=== PATIENT | female | born 1955 | race Caucasian/White ===

== ENCOUNTER 2020-12-29 08:12 | Outpatient (REF) | payer MEDICARE, SELFPAY ==
[2020-12-29 09:12] LABS: MANUAL DIFF FLAG NO
[2020-12-29 09:15] LABS: Basophils Percent Auto 0.6 % (0-2); Eosinophils Absolute Auto 0.1 X10*3/uL (0.0-0.4); Hematocrit 42.8 % (37-47); Lymphocytes Absolute Auto 1.6 X10*3/uL (1.2-4.9); Lymphocytes Percent Auto 33.8 % (20-40); Mean Corpuscular HGB Conc 32.7 g/dl (31.0-35.0); Mean Corpuscular Hemoglobin 29.7 pg (27.0-33.0); Mean Corpuscular Volume 90.9 fL (80-98); Mean Platelet Volume 9.9 fL (9.4-12.3); Monocytes Absolute Auto 0.5 X10*3/uL (0.1-1.2); Monocytes Percent Auto 10.1 % (2-11); Neutrophils Absolute Auto 2.5 X10*3/uL (2.0-8.3); Neutrophils Percent Auto 52.5 % (45-73); Platelet Count 221 X10*3/uL (160-400); Red Blood Count 4.71 X10*6/uL (4.20-5.50); Red Cell Distribution Width 12.4 % (11.0-16.0); White Blood Count 4.7 X10*3/uL (4.8-10.8)
[2020-12-29 09:34] LABS: Alanine Aminotransferase 19 U/L (0-31); Albumin Level 4.2 g/dL (3.5-5.0); Alkaline Phosphatase 86 U/L (39-117); Aspartate Amino Transferase 20 U/L (5-31); Bilirubin Total 0.5 mg/dL (0.0-1.0); Blood Urea Nitrogen 15 mg/dL (9-16); Calcium 9.6 mg/dL (8.4-10.2); Cholesterol 220 mg/dL; Estimated Average Glucose 131 mg/dL; Estimated Glomerular Filt Rate 57; Glucose Random 108 mg/dL (60-115); HDL Cholesterol 83 mg/dL; Hemoglobin A1c % 6.2 %; LDL Cholesterol Calculated 124 mg/dl; Total Protein 7.1 g/dL (6.5-8.0); Triglycerides 66 mg/dL
[2020-12-29 09:35] LABS: Creatinine Urine 236.45 mg/dL; Microalbum/Creatinine Ratio Ur 6.7 ug/mg cr
[2020-12-29 09:43] LABS: Anion Gap 11 (12-20); Carbon Dioxide 30 mmol/L (22-29); Chloride 103 mmol/L (96-108); Potassium 4.8 mmol/L (3.3-5.1); Sodium 139 mmol/L (135-145)
[2020-12-29 09:55] LABS: Free T4 (Free Thyroxine) 1.05 ng/dL (0.71-1.85); Thyroid Stimulating Hormone 0.89 uIU/mL (0.32-4.0); Vitamin D 25-OH Total 18.3 ng/mL (>30)
[2020-12-29 10:13] LABS: Folate 13.4 ng/mL (> or = 4.0); Vitamin B12 258 pg/mL (200-900)
== END 2020-12-29 08:13 | disposition home or self-care (01) ==
LOC: HO.LAB 08:12
PROVIDERS: PCP Internal Medicine; Visit Provider Internal Medicine
DX: E11.65 Type 2 diabetes mellitus with hyperglycemia (principal); E78.00 Pure hypercholesterolemia, unspecified; E03.9 Hypothyroidism, unspecified
CPT/HCPCS: 36415; 80053; 80061; 82043; 82306; 82607; 82746; 83036; 84439; 84443; 85025

== ENCOUNTER 2021-02-07 12:05 | Outpatient (REF) | payer MEDICARE, SELFPAY ==
--- NOTE | ~2021-02-07 | MM_ITS ---
EXAMINATION: MM SCREENING DIGITAL BREAST TOMOSYNTHESIS, BILATERAL CLINICAL INFORMATION: Screening. Asymptomatic. The lifetime risk of breast cancer based on the Tyrer-Cuzick Model is 4%. COMPARISON: Mammography: 02/25/2018, 11/07/2015, 05/10/2014 TECHNIQUE: Digital breast tomosynthesis is performed in both the craniocaudal and mediolateral oblique views along with computer-aided detection (CAD). Synthesized 2D images are generated from the tomosynthesis. FINDINGS: There are scattered areas of fibroglandular density (ACR BI-RADS breast composition Category b). There are no significant masses, abnormal calcifications, or other abnormalities. Parenchymal pattern is similar to prior studies. No developing density. There are scattered vascular and some ductal secretory calcifications. The axilla and skin contours are unremarkable. MM/MM tomosynthesis screening BI IMPRESSION: No mammographic evidence of malignancy. ASSESSMENT: BI-RADS 2: Benign RECOMMENDATION: Routine annual mammography screening. This patient's information was entered into a reminder system with a target due date for their next mammogram.
== END 2021-02-07 12:06 | disposition home or self-care (01) ==
LOC: HO.MAMMO 12:05
PROVIDERS: Visit Provider Internal Medicine
DX: Z12.31 Encounter for screening mammogram for malignant neoplasm of breast (principal)
CPT/HCPCS: 77063; 77067

== ENCOUNTER 2021-02-21 09:51 | Outpatient (REF) | payer MEDICARE, SELFPAY ==
--- NOTE | ~2021-02-21 | XR_ITS ---
EXAMINATION: XR SHOULDER, RIGHT CLINICAL INFORMATION: Pain. COMPARISON: None TECHNIQUE: AP external rotation, Grashey, scapular Y, and axillary views of the right shoulder. FINDINGS: Bony alignment is normal. There is bony demineralization. The glenohumeral joint is intact. There is mild peripheral osteophyte formation of the glenoid process. The acromioclavicular and coracoclavicular intervals are normal. There is very mild osteoarthritic change of the acromioclavicular joint. No fracture or dislocation is seen. There are no unusual soft tissue calcifications. No foreign body is seen. There is no right pneumothorax.. XR/XR shoulder RT min 2V IMPRESSION: 1. There is mild osteoarthritic change of the right glenohumeral joint, and very mild osteoarthritic change is seen of the right acromioclavicular joint. 2. No fracture or dislocation is seen.
--- NOTE | ~2021-02-21 | MM_ITS ---
EXAMINATION: BONE DENSITOMETRY CLINICAL INDICATION: Other specified disorders of bone density and structure. COMPARISON: Previous BD dated 02/25/2018 and baseline BD dated 08/17/2009. TECHNIQUE: Using a [employer] DXA System (software version: 13.1) manufactured by [email or web address], dual-energy x-ray absorptiometry was performed of the lumbar spine and left hip. The images are of good technical quality. Summary results are attached. FINDINGS: AP SPINE L1-L2 (excluding L3 and L4): The data of L1-L4 has been changed to exclude the L3 and L4 vertebral bodies, because degenerative changes at these levels may cause overestimation of lumbar spine density. Current: BMD 0.862 g/cm2, Z-score -1.6, T-score -2.5, osteoporosis, 0.3% increase from previous, 13.5% decrease from baseline (<5% change is not significant). Prior: BMD 0.859 g/cm2. Baseline: BMD 0.997 g/cm2. LEFT FEMUR, NECK: Current: BMD 0.755 g/cm2, Z-score -0.9, T-score -2.0, osteopenia. Prior: BMD 0.759 g/cm2. Baseline: BMD 0.865 g/cm2. LEFT FEMUR, TOTAL: Current: BMD 0.851 g/cm2, Z-score -0.4, T-score -1.2, osteopenia, 1.5% decrease from previous, 9.4% decrease from baseline (<5% change is not significant). Prior: BMD 0.864 g/cm2. Baseline: BMD 0.939 g/cm2. IDENTIFIED RISK FACTORS: Menopause. HISTORY OF FRACTURE: None listed. MEDICATIONS: None listed. MM/XR DEXA axial skeleton IMPRESSION: 1. DIAGNOSIS: Osteoporosis based on the lowest T-score value of -2.5 in the lumbar spine applying World Health Organization criteria. 2. 10-YEAR FRACTURE RISK PREDICTION, FRAX: Major osteoporotic fracture (clinical spine, forearm, hip or shoulder) 11.2%. Hip fracture 1.9%. 3. Treatment Recommendations: NOF guidelines recommend consideration for treatment in postmenopausal women and men age 50 and older presenting with the following: -A hip or vertebral (clinical or morphometric) fracture. -T-score less than or equal to -2.5 at the femoral neck or spine after appropriate evaluation to exclude secondary causes. -Low bone mass at the hip or spine and a 10-year fracture probability by FRAX of greater than or equal to 3% for hip fracture or greater than or equal to 20% for major osteoporotic fracture based on the [place] adapted WHO algorithm. 4. Other Recommendations: All treatment decisions require clinical judgment and consideration of individual patient factors, including patient preferences, comorbidities, previous drug use, risk factors not captured in the FRAX model (e.g. frailty, falls, vitamin D deficiency, increased bone turnover, interval significant decline in bone density) and possible under or overestimation of fracture risk by FRAX. Additional medical evaluation for secondary cause of low bone mineral density may be appropriate. FUTURE SCAN RECOMMENDATION: People with diagnosed cases of osteoporosis or at high risk for fracture should have regular bone mineral density tests. For patients eligible for Medicare, routine testing is allowed once every 2 years. The testing frequency can be increased to one year for patients who have rapidly progressing disease, those who are receiving or discontinuing medical therapy to restore bone mass, or have additional risk factors.
== END 2021-02-21 09:52 | disposition home or self-care (01) ==
LOC: HO.MAMMO 09:51
PROVIDERS: PCP Internal Medicine; Visit Provider Internal Medicine
DX: Z13.820 Encounter for screening for osteoporosis (principal); M81.0 Age-related osteoporosis without current pathological fracture; M85.80 Other specified disorders of bone density and structure, unspecified site; Z78.0 Asymptomatic menopausal state; M25.511 Pain in right shoulder
CPT/HCPCS: 73030; 77080

== ENCOUNTER 2021-03-30 07:11 | Outpatient (REF) | payer MEDICARE, SELFPAY ==
[2021-03-30 07:37] LABS: MANUAL DIFF FLAG NO
[2021-03-30 07:40] LABS: Basophils Percent Auto 0.7 % (0-2); Eosinophils Absolute Auto 0.1 X10*3/uL (0.0-0.4); Eosinophils Percent Auto 3.2 % (0-4); Hematocrit 41.7 % (37-47); Hemoglobin 13.9 g/dl (12.0-16.0); Imm Gran Abs Auto 0.01 X10*3/uL (0.00-0.03); Imm Gran Pct Auto 0.2 % (0.0-0.4); Lymphocytes Absolute Auto 1.7 X10*3/uL (1.2-4.9); Mean Corpuscular HGB Conc 33.3 g/dl (31.0-35.0); Mean Corpuscular Hemoglobin 29.8 pg (27.0-33.0); Mean Corpuscular Volume 89.3 fL (80-98); Mean Platelet Volume 9.6 fL (9.4-12.3); Monocytes Absolute Auto 0.5 X10*3/uL (0.1-1.2); Monocytes Percent Auto 11.8 % (2-11); Neutrophils Absolute Auto 1.9 X10*3/uL (2.0-8.3); Neutrophils Percent Auto 44.1 % (45-73); Platelet Count 206 X10*3/uL (160-400); Red Blood Count 4.67 X10*6/uL (4.20-5.50); Red Cell Distribution Width 12.5 % (11.0-16.0); White Blood Count 4.3 X10*3/uL (4.8-10.8)
[2021-03-30 08:09] LABS: Alanine Aminotransferase 20 U/L (0-31); Albumin Level 4.1 g/dL (3.5-5.0); Alkaline Phosphatase 91 U/L (39-117); Anion Gap 12 (12-20); Aspartate Amino Transferase 21 U/L (5-31); Bilirubin Total 0.6 mg/dL (0.0-1.0); Blood Urea Nitrogen 13 mg/dL (9-16); Calcium 9.7 mg/dL (8.4-10.2); Carbon Dioxide 30 mmol/L (22-29); Chloride 104 mmol/L (96-108); Cholesterol 186 mg/dL; Estimated Glomerular Filt Rate 52; Glucose Random 146 mg/dL (60-115); HDL Cholesterol 73 mg/dL; LDL Cholesterol Calculated 98 mg/dl; Potassium 4.8 mmol/L (3.3-5.1); Sodium 141 mmol/L (135-145); Total Protein 6.8 g/dL (6.5-8.0); Triglycerides 76 mg/dL
[2021-03-30 08:49] LABS: Folate 13.5 ng/mL (> or = 4.0); Vitamin B12 1566 pg/mL (200-900)
[2021-03-30 09:18] LABS: Creatinine Urine 127.83 mg/dL
== END 2021-03-30 07:12 | disposition home or self-care (01) ==
LOC: HO.LAB 07:11
PROVIDERS: PCP Internal Medicine; Visit Provider Internal Medicine
DX: E11.65 Type 2 diabetes mellitus with hyperglycemia (principal); E78.00 Pure hypercholesterolemia, unspecified
CPT/HCPCS: 36415; 80053; 80061; 82607; 82746; 85025

== ENCOUNTER 2021-07-06 10:35 | Outpatient (REF) | payer MEDICARE, SELFPAY ==
--- NOTE | ~2021-07-06 | XR_ITS ---
EXAMINATION: XR CHEST CLINICAL INFORMATION: Type 2 diabetes mellitus with hyperglycemia. COMPARISON: 12/23/2017 TECHNIQUE: 2 views of the chest were obtained. FINDINGS: The cardiomediastinal silhouette is stable. There are diffusely increased interstitial lung markings, right greater than left, these are progressive when compared with the prior chest radiograph from 12/23/2017. No dense consolidation. No pleural effusion or pneumothorax. Osseous structures unremarkable. XR/XR chest 2V IMPRESSION: Increased interstitial lung markings, progressive when compared with 12/23/2017. These findings likely represent progressive progressive changes in the patient's underlying interstitial lung disease however an acute atypical infectious process is not excluded.
== END 2021-07-06 10:36 | disposition home or self-care (01) ==
LOC: HO.XRAY 10:35
PROVIDERS: PCP Internal Medicine; Visit Provider Internal Medicine
DX: E11.65 Type 2 diabetes mellitus with hyperglycemia (principal)
CPT/HCPCS: 71046

== ENCOUNTER → 2021-07-27 08:47 | Outpatient (BNVA) | payer MEDICARE, SELFPAY | PROVIDERS: PCP Internal Medicine; Visit Provider Internal Medicine Pulmonary Disease | DX: J84.9 Interstitial pulmonary disease, unspecified (principal); R93.89 Abnormal findings on diagnostic imaging of other specified body structures | CPT/HCPCS: 99202 ==

== ENCOUNTER 2021-08-17 09:33 | Outpatient (REF) | payer MEDICARE, SELFPAY ==
--- NOTE | ~2021-08-17 | CT_ITS ---
EXAMINATION: CT CHEST WITHOUT CONTRAST CLINICAL INFORMATION: Interstitial lung disease. COMPARISON: Previous chest x-rays most recent June 2021. TECHNIQUE: Multidetector volumetric CT imaging of the chest was done. Axial MIP volume rendering provided. Sagittal and coronal reformatted images were obtained. This CT examination was performed using dose optimization techniques as appropriate, variously including the following: *Automated exposure control *Adjustment of mA and/or kV according to patient size (this includes techniques or standardized protocols for targeted exams where dose is matched to indication/reason for exam; i.e. extremities or head) *Use of iterative reconstruction technique DLP: 161 mGy-cm FINDINGS: LUNGS: There are increased peripheral interstitial markings with increased peripheral or subpleural reticulation. This is seen diffusely throughout the lungs but greatest at the lung bases. There appear to be increased linear central lung markings in polygonal distribution as well. There are scattered small peripheral or subpleural calcifications. No suspicious pulmonary nodule is seen. No traction bronchiectasis is seen. There is some peripheral or subpleural cystic changes seen at the lung bases. This does not meet criteria for honeycombing. No evidence of emphysema. No endobronchial or endotracheal lesion. MEDIASTINUM: There are small mediastinal lymph nodes. No enlarged lymph nodes are seen. The heart does not appear enlarged. There is mild coronary artery calcification. There is no pericardial effusion. The thoracic aorta is normal in caliber. The pulmonary arteries are upper normal in size, main pulmonary artery measuring 3 cm. PLEURA: There is no pleural effusion. No pleural mass or thickening. AXILLA: No lymphadenopathy. UPPER ABDOMEN: Unremarkable. OSSEOUS STRUCTURES: Unremarkable. CT/CT chest wo con IMPRESSION: Interstitial lung disease. Chest CT appearance is nonspecific. UIP as well as nonspecific interstitial pneumonitis should be considered. Fleischner guidelines were followed.
== END 2021-08-17 09:34 | disposition home or self-care (01) ==
LOC: HO.CT 09:33
PROVIDERS: Visit Provider Internal Medicine Pulmonary Disease
DX: J84.9 Interstitial pulmonary disease, unspecified (principal)
CPT/HCPCS: 71250

== ENCOUNTER 2021-08-21 10:52 | Outpatient (REF) | payer MEDICARE, SELFPAY ==
--- NOTE | 2021-08-21 17:36 | PFT_ITS ---
INDICATION: ILD. SPIROMETRY: FEV1 to FVC of 90% with an FEV1 of 2.05 L which is 85% predicted, an FVC of 2.28 L which is 71% predicted. No significant response to bronchodilators noted. Maximum voluntary ventilation 86% predicted. LUNG VOLUMES: Total lung capacity 75% predicted with an expiratory reserve volume of 91% predicted. DIFFUSION CAPACITY: DLCO 59% predicted. COMPARISONS: I do not have any. IMPRESSION: There are no evidence of any obstructive ventilatory defect. No significant response to bronchodilators noted. Normal maximum voluntary ventilation. However the patient does have a mild restrictive ventilatory defect consistent with her underlying history of interstitial lung disease. The patient also has a moderate diffusion impairment secondary to the above. Comparisons will be helpful. Clinical correlation warranted. MD JAMA Arguelles/MODClyde / [id number]
== END 2021-08-21 10:53 | disposition home or self-care (01) ==
LOC: HO.RESP 10:52
PROVIDERS: PCP Internal Medicine; Visit Provider Internal Medicine Pulmonary Disease
DX: J84.9 Interstitial pulmonary disease, unspecified (principal)
CPT/HCPCS: 94060; 94727; 94729

== ENCOUNTER → 2021-09-07 09:14 | Outpatient (BNVA) | payer MEDICARE, SELFPAY | PROVIDERS: PCP Internal Medicine; Visit Provider Internal Medicine Pulmonary Disease | DX: J84.9 Interstitial pulmonary disease, unspecified (principal) | CPT/HCPCS: 99212 ==

== ENCOUNTER 2022-01-04 11:20 | Outpatient (REF) | payer MEDICARE, SELFPAY ==
[2022-01-04 11:30] LABS: MANUAL DIFF FLAG NO
[2022-01-04 12:16] LABS: Basophils Percent Auto 1.1 % (0-2); Eosinophils Absolute Auto 0.2 X10*3/uL (0.0-0.4); Eosinophils Percent Auto 5.1 % (0-4); Hematocrit 39.7 % (37.0-47.0); Hemoglobin 12.9 g/dl (12.0-16.0); Imm Gran Abs Auto 0.01 X10*3/uL (0.00-0.03); Imm Gran Pct Auto 0.3 % (0.0-0.4); Lymphocytes Absolute Auto 1.5 X10*3/uL (1.2-4.9); Lymphocytes Percent Auto 39.8 % (20-40); Mean Corpuscular HGB Conc 32.5 g/dl (31.0-35.0); Mean Corpuscular Hemoglobin 29.4 pg (27.0-33.0); Mean Corpuscular Volume 90.4 fL (80.0-98.0); Mean Platelet Volume 9.8 fL (9.4-12.3); Monocytes Absolute Auto 0.5 X10*3/uL (0.1-1.2); Monocytes Percent Auto 12.3 % (2-11); Neutrophils Absolute Auto 1.6 x10*3/uL (2.0-8.3); Neutrophils Percent Auto 41.4 % (45-73); Platelet Count 215 X10*3/uL (160-400); Red Blood Count 4.39 X10*6/uL (4.20-5.50); Red Cell Distribution Width 12.7 % (11.0-16.0); White Blood Count 3.7 X10*3/uL (4.8-10.8)
[2022-01-04 12:30] LABS: Estimated Average Glucose 134 mg/dL; Hemoglobin A1c % 6.3 %
[2022-01-04 12:43] LABS: Alanine Aminotransferase 17 U/L (0-31); Albumin Level 3.9 g/dL (3.5-5.0); Alkaline Phosphatase 111 U/L (39-117); Anion Gap 10 (12-20); Aspartate Amino Transferase 19 U/L (5-31); Bilirubin Total 0.5 mg/dL (0.0-1.0); Blood Urea Nitrogen 16 mg/dL (9-16); Calcium 9.3 mg/dL (8.4-10.2); Carbon Dioxide 27 mmol/L (22-29); Chloride 104 mmol/L (96-108); Cholesterol 191 mg/dL; Estimated Glomerular Filt Rate > 60; Glucose Random 136 mg/dL (60-115); HDL Cholesterol 69 mg/dL; LDL Cholesterol Calculated 108 mg/dl; Potassium 4.2 mmol/L (3.3-5.1); Sodium 137 mmol/L (135-145); Total Protein 7.4 g/dL (6.5-8.0); Triglycerides 70 mg/dL
[2022-01-04 13:06] LABS: Free T4 (Free Thyroxine) 1.21 ng/dL (0.71-1.85); Thyroid Stimulating Hormone 0.89 uIU/mL (0.32-4.0)
[2022-01-04 13:27] LABS: Folate 14.3 ng/mL (> or = 4.0); Vitamin B12 475 pg/mL (200-900)
[2022-01-04 13:58] LABS: Creatinine Urine 164.04 mg/dL; Microalbum/Creatinine Ratio Ur 7.9 ug/mg cr
== END 2022-01-04 11:21 | disposition home or self-care (01) ==
LOC: HO.LAB 11:20
PROVIDERS: PCP Internal Medicine; Visit Provider Internal Medicine
DX: E03.9 Hypothyroidism, unspecified (principal); E11.65 Type 2 diabetes mellitus with hyperglycemia; E78.00 Pure hypercholesterolemia, unspecified
CPT/HCPCS: 36415; 80053; 80061; 82043; 82607; 82746; 83036; 84439; 84443; 85025

== ENCOUNTER 2022-07-20 12:46 | Outpatient (REF) | payer MEDICARE, SELFPAY ==
--- NOTE | ~2022-07-20 | CT_ITS ---
EXAMINATION: CT CHEST WITHOUT CONTRAST CLINICAL INFORMATION: Interstitial pulmonary disease. COMPARISON: CT chest 08/17/2021 TECHNIQUE: Multidetector volumetric CT imaging of the chest was done. Axial MIP volume rendering provided. Sagittal and coronal reformatted images were obtained. This CT examination was performed using dose optimization techniques as appropriate, variously including the following: *Automated exposure control *Adjustment of mA and/or kV according to patient size (this includes techniques or standardized protocols for targeted exams where dose is matched to indication/reason for exam; i.e. 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 LUNGS: The lungs are well-expanded with increased intralobular and interlobular prominent interstitial thickening in both upper and lower lobes. Also visualized is subpleural fine interstitial stranding throughout both lungs. There are few scattered calcified and noncalcified densities measuring less than 3 mm. There is no bronchiectasis or bronchial wall thickening. There is no consolidation. MEDIASTINUM: The thyroid lobes are symmetric and normal. The central trachea and bronchi are widely patent. The heart size and the great vessels are of normal caliber. No pericardial effusions are seen. Small shotty lymph nodes are seen in the mediastinum with the largest short axis precarinal lymph node measuring 7 mm. There is a small sliding hiatal hernia. CORONARY ARTERY CALCIFICATION: Mild coronary artery calcifications are seen. PLEURA: There are scattered bilateral pleural calcifications without focal pleural thickening or effusion. AXILLA: Small scattered lymph nodes visualized. UPPER ABDOMEN: Visualized liver, spleen, pancreas and bilateral adrenal glands are unremarkable. OSSEOUS STRUCTURES: No aggressive lytic or sclerotic process seen. CT/CT chest wo IV con IMPRESSION: 1. Chronic interstitial lung changes with increased intralobular and interlobular interstitial thickening in both upper and lower lobes. The findings are stable compared to last CT chest 08/17/2021. 2. Scattered calcified and noncalcified densities measuring less than 3 mm. 3. Scattered bilateral pleural calcifications. 4. No abnormal mediastinal or axillary lymph nodes seen. 5. Small sliding hiatal hernia. 6. Mild coronary artery calcifications are present. Fleischner guidelines were followed.
== END 2022-07-20 12:47 | disposition home or self-care (01) ==
LOC: HO.CT 12:46
PROVIDERS: PCP Internal Medicine; Visit Provider Internal Medicine Pulmonary Disease
DX: J84.9 Interstitial pulmonary disease, unspecified (principal)
CPT/HCPCS: 71250

== ENCOUNTER 2022-07-26 08:51 | Outpatient (REF) | payer MEDICARE, SELFPAY ==
--- NOTE | 2022-07-26 17:46 | PFT_ITS ---
INDICATION: Interstitial lung disease. SPIROMETRY: FEV1 to FVC of 90% with an FEV1 of 2.01 L, which is 84% predicted and an FVC of 2.24 L, which is 71% predicted. No significant response to bronchodilators noted. Maximum voluntary ventilation 89% predicted. LUNG VOLUMES: Total lung capacity 67% predicted. DIFFUSION CAPACITY: DLCO 45% predicted. COMPARISONS: None available. INTERPRETATION: No obstructive ventilatory defect. No significant response to bronchodilators noted. Normal maximum voluntary ventilation. However the patient does have a restrictive ventilatory defect consistent with moderate restrictive lung disease. This is consistent with a history of interstitial lung disease. The patient also has a severe diffusion impairment. Again, I do not have comparisons at this time. Clinical correlation warranted. MD JAMA Arguelles/KAITLIN / [id number]
== END 2022-07-26 08:52 | disposition home or self-care (01) ==
LOC: HO.RESP 08:51
PROVIDERS: PCP Internal Medicine; Visit Provider Internal Medicine Pulmonary Disease
DX: J84.9 Interstitial pulmonary disease, unspecified (principal)
CPT/HCPCS: 94060; 94727; 94729

== ENCOUNTER → 2022-09-05 15:06 | Outpatient (BNVA) | payer MEDICARE, SELFPAY | PROVIDERS: PCP Internal Medicine; Visit Provider Internal Medicine Pulmonary Disease | DX: J84.9 Interstitial pulmonary disease, unspecified (principal); Z87.891 Personal history of nicotine dependence | CPT/HCPCS: 99212 ==

== ENCOUNTER 2022-09-21 08:07 | Outpatient (REF) | payer MEDICARE, SELFPAY ==
[2022-09-21 11:19] LABS: Basophils Percent Auto 0.8 % (0-2); Eosinophils Absolute Auto 0.2 X10*3/uL (0.0-0.4); Eosinophils Percent Auto 3.4 % (0-4); Imm Gran Abs Auto 0.01 X10*3/uL (0.00-0.03); Imm Gran Pct Auto 0.2 % (0.0-0.4); Lymphocytes Absolute Auto 1.7 X10*3/uL (1.2-4.9); Lymphocytes Percent Auto 35.2 % (20-40); MANUAL DIFF FLAG SCAN; Mean Corpuscular HGB Conc 32.6 g/dl (31.0-35.0); Mean Corpuscular Volume 89.2 fL (80.0-98.0); Monocytes Absolute Auto 0.6 X10*3/uL (0.1-1.2); Monocytes Percent Auto 13.4 % (2-11); Neutrophils Absolute Auto 2.2 x10*3/uL (2.0-8.3); PLT CLUMP 1; Red Blood Count 4.82 X10*6/uL (4.20-5.50); Red Cell Distribution Width 12.1 % (11.0-16.0); SCAN SMEAR FLAG 1; White Blood Count 4.8 X10*3/uL (4.8-10.8)
[2022-09-21 11:21] LABS: Estimated Average Glucose 140 mg/dL; Hemoglobin A1c % 6.5 %
[2022-09-21 12:02] LABS: Alanine Aminotransferase 17 U/L (0-31); Albumin Level 3.9 g/dL (3.5-5.0); Alkaline Phosphatase 89 U/L (39-117); Anion Gap 13 (12-20); Aspartate Amino Transferase 19 U/L (5-31); Bilirubin Total 0.6 mg/dL (0.0-1.0); Blood Urea Nitrogen 16 mg/dL (9-16); Calcium 9.3 mg/dL (8.4-10.2); Carbon Dioxide 29 mmol/L (22-29); Chloride 103 mmol/L (96-108); Cholesterol 196 mg/dL; Estimated Glomerular Filt Rate > 60; Glucose Random 113 mg/dL (60-115); HDL Cholesterol 70 mg/dL; LDL Cholesterol Calculated 116 mg/dl; Potassium 5.3 mmol/L (3.3-5.1); Sodium 140 mmol/L (135-145); Total Protein 7.1 g/dL (6.5-8.0); Triglycerides 53 mg/dL
[2022-09-21 12:06] LABS: SLIDE REVIEW VERIFIED
[2022-09-21 12:16] LABS: Folate 13.8 ng/mL (> or = 4.0); Free T4 (Free Thyroxine) 1.33 ng/dL (0.71-1.85); Thyroid Stimulating Hormone 0.49 uIU/mL (0.32-4.0); Vitamin B12 381 pg/mL (200-900); Vitamin D 25-OH Total 13.6 ng/mL (>30)
== END 2022-09-21 08:08 | disposition home or self-care (01) ==
LOC: HO.10HDL 08:07
PROVIDERS: Visit Provider Internal Medicine
DX: E11.65 Type 2 diabetes mellitus with hyperglycemia (principal); E78.00 Pure hypercholesterolemia, unspecified; M85.80 Other specified disorders of bone density and structure, unspecified site
CPT/HCPCS: 36415; 80053; 80061; 82306; 82607; 82746; 83036; 84439; 84443; 85025

== ENCOUNTER 2022-11-15 15:44 | Outpatient (REF) | payer MEDICARE, SELFPAY ==
--- NOTE | 2022-11-15 15:48 | ECG_ITS ---
Test Reason : PREPROC EXAM Blood Pressure : / mmHG Vent. Rate : 076 BPM Atrial Rate : 076 BPM P-R Int : 158 ms QRS Dur : 090 ms QT Int : 354 ms P-R-T Axes : 070 -02 055 degrees QTc Int : 398 ms Normal sinus rhythm Normal ECG No previous ECGs available Referred By: David Luna Electronically Signed By:Markos Low
[2022-11-15 15:55] LABS: MANUAL DIFF FLAG NO
[2022-11-15 17:27] LABS: Basophils Percent Auto 0.5 % (0-2); Eosinophils Absolute Auto 0.1 X10*3/uL (0.0-0.4); Eosinophils Percent Auto 1.9 % (0-4); Hematocrit 40.4 % (37.0-47.0); Hemoglobin 13.4 g/dl (12.0-16.0); Imm Gran Abs Auto 0.01 X10*3/uL (0.00-0.03); Imm Gran Pct Auto 0.1 % (0.0-0.4); Lymphocytes Percent Auto 26.5 % (20-40); Mean Corpuscular HGB Conc 33.2 g/dl (31.0-35.0); Mean Corpuscular Hemoglobin 29.9 pg (27.0-33.0); Mean Corpuscular Volume 90.2 fL (80.0-98.0); Mean Platelet Volume 10.1 fL (9.4-12.3); Monocytes Absolute Auto 0.7 X10*3/uL (0.1-1.2); Monocytes Percent Auto 8.9 % (2-11); Neutrophils Absolute Auto 4.7 x10*3/uL (2.0-8.3); Neutrophils Percent Auto 62.1 % (45-73); Platelet Count 203 X10*3/uL (160-400); Red Blood Count 4.48 X10*6/uL (4.20-5.50); Red Cell Distribution Width 12.5 % (11.0-16.0); White Blood Count 7.5 X10*3/uL (4.8-10.8)
[2022-11-15 17:44] LABS: Anion Gap 12 (12-20); Blood Urea Nitrogen 18 mg/dL (9-16); Calcium 9.2 mg/dL (8.4-10.2); Carbon Dioxide 29 mmol/L (22-29); Chloride 105 mmol/L (96-108); Estimated Glomerular Filt Rate 54; Glucose Random 127 mg/dL (60-115); Potassium 4.5 mmol/L (3.3-5.1); Sodium 141 mmol/L (135-145)
== END 2022-11-15 15:45 | disposition home or self-care (01) ==
LOC: HO.LAB 15:44
PROVIDERS: PCP Internal Medicine; Visit Provider Internal Medicine
DX: Z01.818 Encounter for other preprocedural examination (principal)
CPT/HCPCS: 36415; 80048; 85025; 93005

== ENCOUNTER 2022-12-24 10:00 | Outpatient (REF) | payer MEDICARE, SELFPAY ==
[2022-12-24 10:14] LABS: MANUAL DIFF FLAG NO
[2022-12-24 11:22] LABS: Basophils Percent Auto 0.7 % (0-2); Eosinophils Absolute Auto 0.2 X10*3/uL (0.0-0.4); Eosinophils Percent Auto 4.3 % (0-4); Hematocrit 40.5 % (37.0-47.0); Hemoglobin 13.4 g/dl (12.0-16.0); Imm Gran Abs Auto 0.01 X10*3/uL (0.00-0.03); Imm Gran Pct Auto 0.2 % (0.0-0.4); Lymphocytes Absolute Auto 1.9 X10*3/uL (1.2-4.9); Lymphocytes Percent Auto 34.9 % (20-40); Mean Corpuscular HGB Conc 33.1 g/dl (31.0-35.0); Mean Corpuscular Hemoglobin 30.2 pg (27.0-33.0); Mean Corpuscular Volume 91.2 fL (80.0-98.0); Mean Platelet Volume 10.1 fL (9.4-12.3); Monocytes Absolute Auto 0.7 X10*3/uL (0.1-1.2); Monocytes Percent Auto 12.6 % (2-11); Neutrophils Absolute Auto 2.6 x10*3/uL (2.0-8.3); Neutrophils Percent Auto 47.3 % (45-73); Platelet Count 220 X10*3/uL (160-400); Red Blood Count 4.44 X10*6/uL (4.20-5.50); Red Cell Distribution Width 12.5 % (11.0-16.0); White Blood Count 5.4 X10*3/uL (4.8-10.8)
[2022-12-24 11:29] LABS: Estimated Average Glucose 131 mg/dL; Hemoglobin A1c % 6.2 %
[2022-12-24 11:45] LABS: Alanine Aminotransferase 22 U/L (0-31); Albumin Level 3.9 g/dL (3.5-5.0); Alkaline Phosphatase 87 U/L (39-117); Anion Gap 10 (12-20); Aspartate Amino Transferase 21 U/L (5-31); Bilirubin Total 0.4 mg/dL (0.0-1.0); Blood Urea Nitrogen 15 mg/dL (9-16); Calcium 9.4 mg/dL (8.4-10.2); Carbon Dioxide 30 mmol/L (22-29); Chloride 103 mmol/L (96-108); Cholesterol 190 mg/dL; Estimated Glomerular Filt Rate > 60; Glucose Random 116 mg/dL (60-115); HDL Cholesterol 75 mg/dL; LDL Cholesterol Calculated 97 mg/dl; Potassium 5.1 mmol/L (3.3-5.1); Sodium 138 mmol/L (135-145); Total Protein 6.9 g/dL (6.5-8.0); Triglycerides 91 mg/dL
[2022-12-24 11:48] LABS: Appearance Urine Turbid; Color Urine Yellow; Glucose Urine UA Negative (Negative); Leukocyte Esterase Urine Large (3+) (Negative); Nitrite Urine Negative (Negative); PH 6.5 (5.0-9.0); Specific Gravity - Urine <= 1.005 (1.005-1.025); UMIC TRIGGER UACC YES; Urine Blood Small (1+) (Negative); Urine Ketones Negative (Negative); Urine Protein Negative (Neg-Trace)
[2022-12-24 12:05] LABS: Bacteria Urine 2+ (None Seen); Hyaline Casts Urine 0-2 /LPF (0-2); RBC Urine 0-2 /HPF (0-2); Squamous Epithelial Cell Urine 0-2 /HPF (0-2); UACC Culture Trigger YES; WBC Urine >50 /HPF (0-5)
== END 2022-12-24 10:01 | disposition home or self-care (01) ==
LOC: HO.LAB 10:00
PROVIDERS: PCP Internal Medicine; Visit Provider Internal Medicine
DX: E11.65 Type 2 diabetes mellitus with hyperglycemia (principal); R39.9 Unspecified symptoms and signs involving the genitourinary system; E78.00 Pure hypercholesterolemia, unspecified
CPT/HCPCS: 36415; 80053; 80061; 81001; 83036; 85025; 87086

== ENCOUNTER 2023-01-04 16:00 | Outpatient (REF) | payer MEDICARE, SELFPAY ==
--- NOTE | ~2023-01-04 | MM_ITS ---
EXAMINATION: MM SCREENING DIGITAL BREAST TOMOSYNTHESIS, BILATERAL CLINICAL INFORMATION: Screening. Asymptomatic. The lifetime risk of breast cancer based on the Tyrer-Cuzick Model is 4%. COMPARISON: Mammography: 02/07/2021, 02/25/2018, 11/07/2015 TECHNIQUE: Digital breast tomosynthesis is performed in both the craniocaudal and mediolateral oblique views along with computer-aided detection (CAD). Synthesized 2D images are generated from the tomosynthesis. Additional right MLO view is provided. FINDINGS: There are scattered areas of fibroglandular density (ACR BI-RADS breast composition Category b). Parenchymal pattern is similar to prior study and there is no significant mass, developing density, or interval architectural abnormality or abnormal calcifications. Scattered bilateral vascular calcifications again seen. The axilla and skin contours are unremarkable. MM/MM tomosynthesis screening BI IMPRESSION: No mammographic evidence of malignancy. ASSESSMENT: BI-RADS 2: Benign RECOMMENDATION: Routine annual mammography screening. This patient's information was entered into a reminder system with a target due date for their next mammogram.
== END 2023-01-04 16:01 | disposition home or self-care (01) ==
LOC: HO.MAMMO 16:00
PROVIDERS: PCP Internal Medicine; Visit Provider Internal Medicine
DX: Z12.31 Encounter for screening mammogram for malignant neoplasm of breast (principal)
CPT/HCPCS: 77063; 77067

== ENCOUNTER 2023-07-10 11:04 | Outpatient (REF) | payer MEDICARE, SELFPAY ==
[2023-07-10 13:45] LABS: Appearance Urine Turbid; Color Urine Yellow; Glucose Urine UA Negative (Negative); Leukocyte Esterase Urine Large (3+) (Negative); Nitrite Urine Negative (Negative); Specific Gravity - Urine <= 1.005 (1.005-1.025); UMIC TRIGGER UACC YES; Urine Blood Large (3+) (Negative); Urine Ketones Negative (Negative); Urine Protein Negative (Neg-Trace)
[2023-07-10 14:06] LABS: Bacteria Urine 4+ (None Seen); Hyaline Casts Urine 0-2 /LPF (0-2); RBC Urine 0-2 /HPF (0-2); Squamous Epithelial Cell Urine 0-2 /HPF (0-2); UACC Culture Trigger YES; WBC Urine >50 /HPF (0-5)
== END 2023-07-10 11:05 | disposition home or self-care (01) ==
LOC: HO.LAB 11:04
PROVIDERS: PCP Internal Medicine; Visit Provider Internal Medicine
DX: R39.9 Unspecified symptoms and signs involving the genitourinary system (principal); R30.0 Dysuria
CPT/HCPCS: 81001; 87086; 87088; 87186

== ENCOUNTER 2023-08-14 09:08 | Outpatient (REF) | payer MEDICARE, SELFPAY ==
--- NOTE | ~2023-08-14 | CT_ITS ---
EXAMINATION: CT CHEST WITHOUT CONTRAST CLINICAL INFORMATION: Interstitial pulmonary disease COMPARISON: Multiple previous CTs, most recent, 07/20/2022 TECHNIQUE: Multidetector volumetric CT imaging of the chest was done. Axial MIP volume rendering provided. Sagittal and coronal reformatted images were obtained. This CT examination was performed using dose optimization techniques as appropriate, variously including the following: *Automated exposure control *Adjustment of mA and/or kV according to patient size (this includes techniques or standardized protocols for targeted exams where dose is matched to indication/reason for exam; i.e. 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 No significant bronchiectasis or bronchial wall thickening. Diffuse predominantly peripheral increased reticular markings without upper or lower distribution. Stable calcified and noncalcified scattered less than 3 mm nodules. No developing mass lesions, consolidations or groundglass opacities. No evidence of air trapping on high-resolution images. MEDIASTINUM: No thyroid abnormality. No pathologic lymphadenopathy. Small hiatal hernia. Nonenlarged heart. No pericardial effusion. Atherosclerotic calcifications nonaneurysmal aorta. Ectatic pulmonary arteries. CORONARY ARTERY CALCIFICATION: Mild PLEURA: There is no pleural effusion. No pleural mass or thickening. AXILLA: No lymphadenopathy. UPPER ABDOMEN: Unremarkable. OSSEOUS STRUCTURES: Unremarkable. CT/CT chest wo IV con IMPRESSION: Stable chronic appearing interstitial lung changes. No developing lung nodules, consolidations or groundglass opacities. Fleischner guidelines were followed.
== END 2023-08-14 09:09 | disposition home or self-care (01) ==
LOC: HO.CT 09:08
PROVIDERS: PCP Internal Medicine; Visit Provider Internal Medicine Pulmonary Disease
DX: J84.9 Interstitial pulmonary disease, unspecified (principal)
CPT/HCPCS: 71250

== ENCOUNTER 2023-08-21 09:44 | Outpatient (AMB) | payer MEDICARE, SELFPAY ==
[2023-08-21 09:48] VITALS: BP 136/68; PULSE 67; O2SAT 99; BMI 30.2
--- NOTE | 2023-08-21 09:48 | MHC.PC.OV ---
Vital Signs 08/21/23 09:48 Height 5 ft 6 in Weight 187 lb BMI 30.2 BP 136/68 Blood Pressure Location Lt brachial Position Sitting Pulse 67 Pulse Source Pulse Oximeter Pulse Oximetry (%) 99 Oxygen Delivery Method Room Air Intake Visit Reasons: follow up cholesterol Intake Note: Patient is here to follow up on cholesterol Extrusion Supervisor Required: No Allergies Sulfa (Sulfonamide Antibiotics) Allergy (Unknown, Verified 08/21/23 10:00) hives simvastatin Adverse Reaction (Intermediate, Verified 08/21/23 10:00) myalgia Tobacco use date assessed: 08/21/23 Fall risk assessment: No Falls in past year Last assessed Fall Risk: 08/21/23 Dental Screening Dental Screen Date: 08/21/23 HPI follow up cholesterol HPI Details 68-year-old obese female with diabetes mellitus hypothyroidism hypercholesterolemia generalized anxiety disorder and interstitial lung disease last seen in October 2022 for preop. Patient is due for bone density up-to-date with mammogram and due for colonoscopy. Review of the notes had a CT scan of the chest July 2023 showing stable interstitial lung changes no nodules found [facility] Medical History (Updated 08/21/23 @ 10:32 by David Luna MD) Osteopenia Abnormal chest x-ray Fracture of fifth toe, left, closed De Quervain's tenosynovitis Hypercholesterolemia Type 2 diabetes mellitus with hyperglycemia Fatty liver Tubular adenoma of colon Degenerative disc disease, cervical Hypothyroid Vitamin D deficiency Surgical History (Updated 06/22/20 @ 13:59 by Annabelle Connell) H/O rectocele repair History of tonsillectomy History of bladder surgery History of tubal ligation History of section Family History (Updated 09/26/22 @ 08:31 by Kirsten Bhat [facility]) Father No problems noted. Mother Lymphoma Maternal Grandmother Lymphoma Maternal Aunt Bone cancer Social History (Updated 11/15/22 @ 15:33 by David Luna MD) Housing: House Alcohol intake: current Alcohol intake frequency: a few times a week Patient Tobacco Use Status: Former Tobacco user Tobacco use type: Cigarette Years Smoked: quit 18 years old e-Cigarette/Vaping Use: Never Used Second Hand Smoke Exposure: No Current occupational status: retired Cognitive needs: No Hearing needs: No Vision needs: No Questionnaire PHQ-9 Over the last 2 weeks, how often have you been bothered by any of the following problems? 1. Little interest or pleasure in doing things: several days 2. Feeling down, depressed, or hopeless: several days 3. Trouble falling or staying asleep, or sleeping too much: several days 4. Feeling tired or having little energy: several days 5. Poor appetite or overeating: several days 6. Feeling bad about yourself - or that you are a failure or have let yourself or your family down: several days 7. Trouble concentrating on things, such as reading the newspaper or watching television: not at all 8. Moving or speaking so slowly that other people could have noticed. Or the opposite - being so fidgety or restless that you have been moving around a lot more than usual: not at all 9. Thoughts that you would be better off or of hurting yourself in some way: not at all Total score: 6 Depression Screening Interpretation: Positive Depression Screening Follow-up: Existing condition and In treatment Depression Screening Done: Yes Source: Developed by Drs. Obie Quick, Pepper Kruger, Mir Reddy and colleagues, with an educational sourav from [employer]. Thrive Questionnaire Date Thrive assessed: 08/21/23 I am a: Patient What is your living situation today?: I have a steady place to live Within the past 12 months, did the food you bought not last and you didn't have the money to get more?: Never true Within the past 12 months, did you worry whether your food would run out before you got money to buy more?: Never true Do you have trouble paying for medicines?: No Do you have trouble getting transportation to medical appointments?: No Do you have trouble paying your heating and electricity bill?: No Do you have trouble taking care of your child, family member or friend?: No Do you have trouble with day-to-day activities such as bathing, preparing meals, shopping, managing finances, etc.?: No Are you currently unemployed and looking for a job?: No Are you interested in more education?: No Please select the resources that you would like help with: None THRIVE Score: 0 AUDIT C Alcohol Use Questionnaire (AUDIT-C) 1. How often do you have a drink containing alcohol?: 2-3 times a week 2. How many drinks containing alcohol do you have on a typical day when you are drinking?: 1 or 2 3. How often do you have six or more drinks on one occasion?: Never Total Score: 3 PEARL-7 AMB Questionnaire PEARL-7 Date PEARL - 7 assessed: 08/21/23 (in treatment ) Feeling nervous, anxious, or on edge: 1 = Several days Not being able to stop or control worryin = Several days Worrying too much about different things: 1 = Several days Trouble relaxin = Several days Being so restless that it is hard to sit still: 1 = Several days Becoming easily annoyed or irritable: 0 = Not at all Feeling afraid as if something awful might happen: 0 = Not at all Total PEARL-7 score (0-4 normal; 5-9 mild; 10-14 moderate; 15-21 severe): 5 Source: Developed by Drs. Obie Quick, Pepper Kruger, Mir Reddy and colleagues, with an educational sourav from [employer]. Physical exam (Primary Care) Vital Signs: Last Vital Signs Pulse 67 08/21/23 09:48 BP 136/68 08/21/23 09:48 Pulse Ox 99 08/21/23 09:48 Oxygen Delivery Method Room Air 08/21/23 09:48 BMI result Body Mass Index 30.2 Tobacco/Smoking Status: Tobacco use Status Tobacco use date assessed 08/21/23 08/21/23 09:50 Patient Tobacco Use Status Former Tobacco user 08/21/23 09:49 Tobacco use type Cigarette 08/21/23 09:49 e-Cigarette/Vaping Use Never Used 08/21/23 09:49 PHQ-9: PHQ-9 Score PHQ-9: Total score 6 08/21/23 10:07 Depression Screening Interpretation: Positive Depression Screening Follow-up: Existing condition and In treatment Thrive Assessment: Date of Thrive Assessment Date Thrive assessed 08/21/23 08/21/23 09:50 Const General: alert; No acute distress Eyes Conjunctivae: conjunctivae normal Resp Auscultation: clear to auscultation bilaterally Cardio Rate: regular rate Rhythm: regular rhythm GI Inspection: Yes normal to inspection Extrem General: Yes normal to inspection and No edema Results AMB Hemoglobin A1c AMB Hemoglobin A1c 6.7 % Last Edit by KORY Perales on 08/21/23 10:07 Results Reviewed Results Reviewed: Laboratory Last Values Hgb A1c (Clinic) 6.7 % (4.0-6.0) H 08/21/23 09:48 Assessment and Plan Assessment & Plan (1) Type 2 diabetes mellitus with hyperglycemia: Comment: [facility] [employer] Code(s): E11.65 - Type 2 diabetes mellitus with hyperglycemia Qualifiers: Diabetes mellitus correction insulin use: without correction use Qualified Code(s): E11.65 - Type 2 diabetes mellitus with hyperglycemia Plan: Decrease the amount of carbohydrate intake, pasta, bread, rice and potatoes are all sugar and that is aside from all the sweet stuff, remember that fruits are good but they are Sweet also. Hemoglobin A1c goal of less than 7.0 presently on diet control (2) Hypothyroid: Code(s): E03.9 - Hypothyroidism, unspecified Qualifiers: Hypothyroidism type: acquired Qualified Code(s): E03.9 - Hypothyroidism, unspecified Plan: Continue with thyroid medication December 2022 last blood work (3) Hypercholesterolemia: Code(s): E78.00 - Pure hypercholesterolemia, unspecified Plan: Avoid fried foods, chicken skin, eggs, butter margarine, pastries and meat. Be it pork or beef they have a lot of cholesterol LDL goal of less than 100 and triglyceride of less than 150 presently on pravastatin (4) Colon cancer screening: Code(s): Z12.11 - Encounter for screening for malignant neoplasm of colon Plan: Reminded about colon cancer screening (5) Interstitial lung disease: Comment: July 2023 Code(s): J84.9 - Interstitial pulmonary disease, unspecified Plan: Recent CT scan done July 2023 (6) Generalized anxiety disorder: Comment: Prescriber scheduled and counselling, huggins counselling. Code(s): F41.1 - Generalized anxiety disorder Plan: Continue with present medication (7) Age-related osteoporosis without current pathological fracture: Code(s): M81.0 - Age-related osteoporosis without current pathological fracture Orders: Orders AMB Hemoglobin A1c Today E11.65 - Type 2 diabetes mellitus with hyperglycemia XR DEXA axial skeleton Today M81.0 - Age-related osteoporosis without current pathological fracture Complete Blood Count Auto Diff 3 Months E03.9 - Hypothyroidism, unspecified Free T4 (Free Thyroxine) 3 Months E03.9 - Hypothyroidism, unspecified Lipid Panel 3 Months E03.9 - Hypothyroidism, unspecified, E78.00 - Pure hypercholesterolemia, unspecified Thyroid Stimulating Hormone 3 Months E03.9 - Hypothyroidism, unspecified Vitamin D 25-OH Total 3 Months E03.9 - Hypothyroidism, unspecified Hemoglobin A1c 3 Months E11.65 - Type 2 diabetes mellitus with hyperglycemia Microalbumin, Random (w Creat) 3 Months E11.65 - Type 2 diabetes mellitus with hyperglycemia Creatinine Urine 3 Months E11.65 - Type 2 diabetes mellitus with hyperglycemia Comprehensive Met. Panel 3 Months E03.9 - Hypothyroidism, unspecified Vitamin B12 and Folate 3 Months E03.9 - Hypothyroidism, unspecified Medications: New sertraline 25 mg PO DAILY 30 tabs 3RF F41.1 - Generalized anxiety disorder Coding Level of Care Code Est Pt Level 4 (09165) Diagnoses Type 2 diabetes mellitus with hyperglycemia, without long-term current use of insulin E11. Diabetes mellitus correction insulin use: without correction use Acquired hypothyroidism E03.9 Hypothyroidism type: acquired Hypercholesterolemia E78.00 Colon cancer screening Z12.11 Interstitial lung disease J84.9 Generalized anxiety disorder F41.1 Age-related osteoporosis without current pathological fracture M81.0
== END 2023-08-21 10:41 | disposition home or self-care (01) ==
PROVIDERS: PCP Internal Medicine; Visit Provider Internal Medicine
DX: E11.65 Type 2 diabetes mellitus with hyperglycemia (principal); J84.9 Interstitial pulmonary disease, unspecified; Z68.30 Body mass index [BMI] 30.0-30.9, adult; E66.09 Other obesity due to excess calories; E03.9 Hypothyroidism, unspecified; E78.00 Pure hypercholesterolemia, unspecified; Z12.11 Encounter for screening for malignant neoplasm of colon; F41.1 Generalized anxiety disorder; M81.0 Age-related osteoporosis without current pathological fracture
CPT/HCPCS: 83036; 99214

== ENCOUNTER 2023-11-18 07:06 | Outpatient (REF) | payer MEDICARE, SELFPAY ==
[2023-11-18 07:23] LABS: MANUAL DIFF FLAG NO
[2023-11-18 08:05] LABS: Basophils Absolute Auto 0.1 X10*3/uL (0.0-0.2); Basophils Percent Auto 1.3 % (0-2); Eosinophils Absolute Auto 0.2 X10*3/uL (0.0-0.4); Hematocrit 38.7 % (37.0-47.0); Hemoglobin 12.7 g/dl (12.0-16.0); Imm Gran Abs Auto 0.01 X10*3/uL (0.00-0.03); Imm Gran Pct Auto 0.3 % (0.0-0.4); Lymphocytes Absolute Auto 1.5 X10*3/uL (1.2-4.9); Lymphocytes Percent Auto 36.9 % (20-40); Mean Corpuscular HGB Conc 32.8 g/dl (31.0-35.0); Mean Corpuscular Volume 91.3 fL (80.0-98.0); Mean Platelet Volume 9.4 fL (9.4-12.3); Monocytes Absolute Auto 0.4 X10*3/uL (0.1-1.2); Monocytes Percent Auto 10.6 % (2-11); Neutrophils Absolute Auto 1.9 x10*3/uL (2.0-8.3); Neutrophils Percent Auto 46.9 % (45-73); Platelet Count 208 X10*3/uL (160-400); Red Blood Count 4.24 X10*6/uL (4.20-5.50); Red Cell Distribution Width 12.5 % (11.0-16.0)
[2023-11-18 09:19] LABS: Estimated Average Glucose 137 mg/dL; Hemoglobin A1c % 6.4 % (<6.0)
[2023-11-18 10:14] LABS: Alanine Aminotransferase 22 U/L (0-31); Albumin Level 3.7 g/dL (3.5-5.0); Alkaline Phosphatase 81 U/L (39-117); Anion Gap 13 (12-20); Aspartate Amino Transferase 22 U/L (5-31); Bilirubin Total 0.6 mg/dL (0.0-1.0); Blood Urea Nitrogen 9 mg/dL (9-16); Calcium 9.2 mg/dL (8.4-10.2); Carbon Dioxide 29 mmol/L (22-29); Chloride 99 mmol/L (96-108); Cholesterol 173 mg/dL (<200); Estimated Glomerular Filt Rate > 60; Glucose Random 130 mg/dL (60-115); HDL Cholesterol 65 mg/dL (>40); LDL Cholesterol Calculated 95 mg/dL (<100); Potassium 3.8 mmol/L (3.3-5.1); Sodium 137 mmol/L (135-145); Triglycerides 68 mg/dL (<150)
[2023-11-18 10:28] LABS: Thyroid Stimulating Hormone 5.04 uIU/mL (0.32-4.0); Vitamin D 25-OH Total 35.1 ng/mL (>30)
[2023-11-18 10:38] LABS: Folate 11.6 ng/mL (> or = 4.0); Vitamin B12 1011 pg/mL (200-900)
[2023-11-18 10:48] LABS: Appearance Urine Clear; Color Urine Yellow; Glucose Urine UA Negative (Negative); Leukocyte Esterase Urine Small (1+) (Negative); Nitrite Urine Negative (Negative); PH 6.5 (5.0-9.0); Specific Gravity - Urine <= 1.005 (1.005-1.025); UMIC TRIGGER UACC YES; Urine Blood Negative (Negative); Urine Ketones Negative (Negative); Urine Protein Negative (Neg-Trace)
[2023-11-18 11:20] LABS: Bacteria Urine None Seen (None Seen); Hyaline Casts Urine 0-2 /LPF (0-2); RBC Urine 0-2 /HPF (0-2); Squamous Epithelial Cell Urine 0-2 /HPF (0-2); UACC Culture Trigger YES; WBC Urine 0-5 /HPF (0-5)
[2023-11-18 11:55] LABS: Microalbumin Urine < 5.0 mg/L
== END 2023-11-18 07:07 | disposition home or self-care (01) ==
LOC: HO.LAB 07:06
PROVIDERS: PCP Internal Medicine; Visit Provider Internal Medicine
DX: E03.9 Hypothyroidism, unspecified (principal); E78.00 Pure hypercholesterolemia, unspecified; E11.65 Type 2 diabetes mellitus with hyperglycemia; R39.9 Unspecified symptoms and signs involving the genitourinary system; R30.0 Dysuria
CPT/HCPCS: 36415; 80053; 80061; 81001; 82043; 82306; 82570; 82607; 82746; 83036; 84439; 84443; 85025; 87086

== ENCOUNTER 2023-11-28 09:29 | Outpatient (AMB) | payer MEDICARE, SELFPAY ==
--- NOTE | 2023-11-28 09:29 | MHC.PC.OV ---
Vital Signs 11/28/23 09:30 Height 5 ft 6 in Weight 189 lb BMI 30.5 BP 124/60 Blood Pressure Location Lt brachial Position Sitting Pulse 74 Pulse Source Pulse Oximeter Pulse Oximetry (%) 97 Oxygen Delivery Method Room Air Intake Visit Reasons: 3m f/ u DM Public Stenographer Required: No Allergies Sulfa (Sulfonamide Antibiotics) Allergy (Unknown, Verified 11/28/23 09:42) hives simvastatin Adverse Reaction (Intermediate, Verified 11/28/23 09:42) myalgia Tobacco use date assessed: 11/28/23 Fall risk assessment: No Falls in past year Last assessed Fall Risk: 11/28/23 Dental Screening Dental Screen Date: 08/21/23 HPI 3m f/ u DM HPI Details 68-year-old obese female with diabetes mellitus hypothyroid hypercholesterolemia interstitial lung disease generalized anxiety disorder last seen in July 2023. Review of the notes bone density is due mammogram is up-to-date colonoscopy is due. CT scan was done in 08/16/2023 showing stable chronic appearing interstitial lung disease no nodules [facility] Medical History (Updated 08/21/23 @ 10:32 by David Luna MD) Osteopenia Abnormal chest x-ray Fracture of fifth toe, left, closed De Quervain's tenosynovitis Hypercholesterolemia Type 2 diabetes mellitus with hyperglycemia Fatty liver Tubular adenoma of colon Degenerative disc disease, cervical Hypothyroid Vitamin D deficiency Surgical History (Updated 06/22/20 @ 13:59 by Annabelle Connell) H/O rectocele repair History of tonsillectomy History of bladder surgery History of tubal ligation History of section Family History (Updated 09/26/22 @ 08:31 by Kirsten Bhat [facility]) Father No problems noted. Mother Lymphoma Maternal Grandmother Lymphoma Maternal Aunt Bone cancer Social History (Updated 11/15/22 @ 15:33 by David Luna MD) Housing: House Alcohol intake: current Alcohol intake frequency: a few times a week Patient Tobacco Use Status: Former Tobacco user Tobacco use type: Cigarette Years Smoked: quit 18 years old e-Cigarette/Vaping Use: Never Used Second Hand Smoke Exposure: No Current occupational status: retired Cognitive needs: No Hearing needs: No Vision needs: No Questionnaire Thrive Questionnaire Date Thrive assessed: 08/21/23 AUDIT C Alcohol Use Questionnaire (AUDIT-C) 1. How often do you have a drink containing alcohol?: 2-3 times a week 2. How many drinks containing alcohol do you have on a typical day when you are drinking?: 1 or 2 3. How often do you have six or more drinks on one occasion?: Never Total Score: 3 PEARL-7 AMB Questionnaire PEARL-7 Date PEARL - 7 assessed: 08/21/23 (in treatment ) Source: Developed by Drs. Obie Quick, Pepper Kruger, Mir Reddy and colleagues, with an educational sourav from [employer]. Physical exam (Primary Care) Vital Signs: Last Vital Signs Pulse 74 11/28/23 09:30 BP 124/60 11/28/23 09:30 Pulse Ox 97 11/28/23 09:30 Oxygen Delivery Method Room Air 11/28/23 09:30 BMI result Body Mass Index 30.5 Tobacco/Smoking Status: Tobacco use Status Tobacco use date assessed 11/28/23 11/28/23 09:31 Patient Tobacco Use Status Former Tobacco user 11/28/23 09:31 Tobacco use type Cigarette 11/28/23 09:31 e-Cigarette/Vaping Use Never Used 11/28/23 09:31 Thrive Assessment: Date of Thrive Assessment Date Thrive assessed 08/21/23 11/28/23 09:31 Const General: alert; No acute distress Eyes Conjunctivae: conjunctivae normal Resp Auscultation: clear to auscultation bilaterally Cardio Rate: regular rate Rhythm: regular rhythm GI Inspection: Yes normal to inspection Extrem General: Yes normal to inspection and No edema Assessment and Plan Assessment & Plan (1) Type 2 diabetes mellitus with hyperglycemia: Comment: [facility] [employer] Code(s): E11.65 - Type 2 diabetes mellitus with hyperglycemia Qualifiers: Diabetes mellitus long-term insulin use: without intermediate school teacher use Qualified Code(s): E11.65 - Type 2 diabetes mellitus with hyperglycemia Plan: Decrease the amount of carbohydrate intake, pasta, bread, rice and potatoes are all sugar and that is aside from all the sweet stuff, remember that fruits are good but they are Sweet also. Hemoglobin A1c goal of less than 7.0 diet controlled (2) Hypothyroid: Code(s): E03.9 - Hypothyroidism, unspecified Qualifiers: Hypothyroidism type: acquired Qualified Code(s): E03.9 - Hypothyroidism, unspecified Plan: Continue with thyroid medication (3) Hypercholesterolemia: Code(s): E78.00 - Pure hypercholesterolemia, unspecified Plan: Avoid fried foods, chicken skin, eggs, butter margarine, pastries and meat. Be it pork or beef they have a lot of cholesterol LDL goal of less than 100 and triglyceride of less than 150 on pravastatin 20 mg (4) Interstitial lung disease: Comment: July 2023 Code(s): J84.9 - Interstitial pulmonary disease, unspecified Plan: Stable on CT scan July 2023 (5) Generalized anxiety disorder: Comment: Prescriber scheduled and counselling, huggins counselling. Code(s): F41.1 - Generalized anxiety disorder Plan: Continue with counseling and therapy (6) Colon cancer screening: Code(s): Z12.11 - Encounter for screening for malignant neoplasm of colon Plan: Patient is reminded about colonoscopy (7) Age-related osteoporosis without current pathological fracture: Code(s): M81.0 - Age-related osteoporosis without current pathological fracture Plan: Patient is reminded about bone density test Coding Level of Care Code Est Pt Level 4 (81397) Diagnoses Type 2 diabetes mellitus with hyperglycemia, without long-term current use of insulin E11.65 Diabetes mellitus intermediate school teacher insulin use: without intermediate school teacher use Acquired hypothyroidism E03.9 Hypothyroidism type: acquired Hypercholesterolemia E78.00 Interstitial lung disease J84.9 Generalized anxiety disorder F41.1 Colon cancer screening Z12.11 Age-related osteoporosis without current pathological fracture M81.0
[2023-11-28 09:30] VITALS: BP 124/60; PULSE 74; O2SAT 97; BMI 30.5
== END 2023-11-28 10:13 | disposition home or self-care (01) ==
PROVIDERS: PCP Internal Medicine; Visit Provider Internal Medicine
DX: E11.65 Type 2 diabetes mellitus with hyperglycemia (principal); E03.9 Hypothyroidism, unspecified; E78.00 Pure hypercholesterolemia, unspecified; J84.9 Interstitial pulmonary disease, unspecified; F41.1 Generalized anxiety disorder; Z12.11 Encounter for screening for malignant neoplasm of colon; M81.0 Age-related osteoporosis without current pathological fracture
CPT/HCPCS: 99214

== ENCOUNTER 2024-01-14 09:47 | Outpatient (REF) | payer MEDICARE, SELFPAY ==
--- NOTE | ~2024-01-14 | MM_ITS ---
EXAMINATION: BONE DENSITOMETRY CLINICAL INDICATION: Age-related osteoporosis without current pathological fracture. COMPARISON: Previous BD dated 02/21/2021 and baseline BD dated 08/17/2009. TECHNIQUE: Using a [employer] DXA System (software version: 13.1) manufactured by [employer], dual-energy x-ray absorptiometry was performed of the lumbar spine and left hip. The images are of good technical quality. Summary results are attached. FINDINGS: LEFT FEMUR, NECK: Current: BMD 0.751 g/cm2, Z-score -0.8, T-score -2.1, osteopenia. Prior: BMD 0.755 g/cm2. Baseline: BMD 0.865 g/cm2. LEFT FEMUR, TOTAL: Current: BMD 0.821 g/cm2, Z-score -0.5, T-score -1.5, osteopenia, 3.5% decrease from previous, 12.6% decrease from baseline (<5% change is not significant). Prior: BMD 0.851 g/cm2. Baseline: BMD 0.939 g/cm2. AP SPINE L1-L2 (excluding L3 and L4): The data of L1-L4 has been changed to exclude the L3 and L4 vertebral bodies, because degenerative sclerosis at these levels may cause overestimation of lumbar spine density. Current: BMD 0.848 g/cm2, Z-score -1.7, T-score -2.6, osteoporosis, 1.6% decrease from previous, 14.9% decrease from baseline (<5% change is not significant). Prior: BMD 0.862 g/cm2. Baseline: BMD 0.997 g/cm2. IDENTIFIED RISK FACTORS: Menopause. HISTORY OF FRACTURE: None listed. MEDICATIONS: Vitamin D. MM/XR DEXA axial skeleton IMPRESSION: 1. DIAGNOSIS: Osteoporosis based on the lowest T-score value of -2.6 in the lumbar spine applying World Health Organization criteria. 2. 10-YEAR FRACTURE RISK PREDICTION, FRAX: According to the guidelines, FRAX calculation should only be performed on patients in the osteopenia bone density category. Therefore, FRAX was not performed on this patient. 3. Treatment Recommendations: NOF guidelines recommend consideration for treatment in postmenopausal women and men age 50 and older presenting with the following: -A hip or vertebral (clinical or morphometric) fracture. -T-score less than or equal to -2.5 at the femoral neck or spine after appropriate evaluation to exclude secondary causes. -Low bone mass at the hip or spine and a 10-year fracture probability by FRAX of greater than or equal to 3% for hip fracture or greater than or equal to 20% for major osteoporotic fracture based on the [place] adapted WHO algorithm. 4. Other Recommendations: All treatment decisions require clinical judgment and consideration of individual patient factors, including patient preferences, comorbidities, previous drug use, risk factors not captured in the FRAX model (e.g. frailty, falls, vitamin D deficiency, increased bone turnover, interval significant decline in bone density) and possible under or overestimation of fracture risk by FRAX. Additional medical evaluation for secondary cause of low bone mineral density may be appropriate. FUTURE SCAN RECOMMENDATION: People with diagnosed cases of osteoporosis or at high risk for fracture should have regular bone mineral density tests. For patients eligible for Medicare, routine testing is allowed once every 2 years. The testing frequency can be increased to one year for patients who have rapidly progressing disease, those who are receiving or discontinuing medical therapy to restore bone mass, or have additional risk factors.
== END 2024-01-14 09:48 | disposition home or self-care (01) ==
LOC: HO.MAMMO 09:47
PROVIDERS: PCP Internal Medicine; Visit Provider Internal Medicine
DX: Z12.31 Encounter for screening mammogram for malignant neoplasm of breast (principal); Z13.820 Encounter for screening for osteoporosis; M81.0 Age-related osteoporosis without current pathological fracture; Z78.0 Asymptomatic menopausal state
CPT/HCPCS: 77063; 77067; 77080

== ENCOUNTER → 2024-01-14 10:45 | Outpatient (BNV) | payer MEDICARE, SELFPAY | PROVIDERS: PCP Internal Medicine; Visit Provider Radiology Diagnostic Radiology | DX: Z12.31 Encounter for screening mammogram for malignant neoplasm of breast (principal) | CPT/HCPCS: 77063; 77067 ==

== ENCOUNTER 2024-02-13 10:25 | Outpatient (AMB) | payer MEDICARE, SELFPAY ==
[2024-02-13 10:26] VITALS: BP 138/72; PULSE 79; O2SAT 92; BMI 31.9
--- NOTE | 2024-02-13 10:26 | MHC.OFFVIS ---
Vital Signs 02/13/24 10:26 Height 5 ft 5 in Weight 191 lb 12.835 oz BMI 31.9 BP 138/72 Blood Pressure Location Rt brachial Position Sitting Pulse 79 Pulse Source Doppler Pulse Oximetry (%) 92 Oxygen Delivery Method Room Air Intake Visit Reasons: ILD Allergies Sulfa (Sulfonamide Antibiotics) Allergy (Unknown, Verified 02/13/24 10:32) hives simvastatin Adverse Reaction (Intermediate, Verified 02/13/24 10:32) myalgia HPI HPI ILD: Details: 69-year-old lady, minimal smoker during her teen years,? followed for underlying moderate UIP.? She has completed her follow-up CT chest that shows stable interstitial findings. Her follow-up pulmonary function testing is pending. She denies any dyspnea on exertion or any other pulmonary related symptoms. [facility] Medical History (Updated 08/21/23 @ 10:32 by David Luna MD) Osteopenia Abnormal chest x-ray Fracture of fifth toe, left, closed De Quervain's tenosynovitis Hypercholesterolemia Type 2 diabetes mellitus with hyperglycemia Fatty liver Tubular adenoma of colon Degenerative disc disease, cervical Hypothyroid Vitamin D deficiency Surgical History (Updated 06/22/20 @ 13:59 by Annabelle Connell) H/O rectocele repair History of tonsillectomy History of bladder surgery History of tubal ligation History of section Family History (Updated 09/26/22 @ 08:31 by Kirsten Bhat [facility]) Father No problems noted. Mother Lymphoma Maternal Grandmother Lymphoma Maternal Aunt Bone cancer Social History (Updated 11/15/22 @ 15:33 by David Luna MD) Housing: House Alcohol intake: current Alcohol intake frequency: a few times a week Patient Tobacco Use Status: Former Tobacco user Tobacco use type: Cigarette Years Smoked: quit 18 years old e-Cigarette/Vaping Use: Never Used Second Hand Smoke Exposure: No Current occupational status: retired Cognitive needs: No Hearing needs: No Vision needs: No Review of Systems Const Denies daytime sleepiness, Denies excessive sweating, Denies fatigue, Denies fever(s), Denies lethargy, Denies malaise, Denies night sweats, Denies snoring and Denies weight loss Eyes Denies blurry vision and Denies itchy eyes ENT Denies nasal congestion, Denies post nasal drip, Denies sinus pain, Denies sinus pressure and Denies other ( Thrush) Card Denies chest pain, Denies pedal edema, Denies dyspnea, Denies orthopnea and Denies paroxysmal nocturnal dyspnea Resp Denies cough, Denies hemoptysis, Denies excessive phlegm production, Denies dyspnea, Denies snoring and Denies wheezing GI Denies abdominal pain and Denies heartburn Musc Denies myalgias, Denies arthralgias and Denies joint swelling Skin/Breast Denies rash Neuro Denies memory loss and Denies seizure-like activity Psych Denies abnormal sleep pattern, Denies anxiety and Denies memory loss Endo Denies excessive sweating, Denies fatigue and Denies heat intolerance Jason/Lymph Denies easy bruising Aller/Immun Denies itchy eyes, Denies seasonal rhinorrhea and Denies wheezing Physical Exam Vital Signs: Last Vital Signs Pulse 79 02/13/24 10:26 BP 138/72 02/13/24 10:26 Pulse Ox 92 02/13/24 10:26 Oxygen Delivery Method Room Air 02/13/24 10:26 BMI result Body Mass Index 31.9 Const General: no acute distress and alert Nutritional Appearance: not obese Orientation/consciousness: Other orientation findings ( oriented) HEENT Head: Yes atraumatic Eyes General: appearance normal, both eyes and all related structures Sclerae: sclerae normal EOM: EOMs intact bilaterally Neck Neck: Yes supple Lymphatic: no lymphadenopathy noted Resp Effort & Inspection: normal respiratory effort and no use of accessory muscles Auscultation: clear to auscultation bilaterally Cardio Rate: regular rate Rhythm: regular rhythm Heart sounds: no gallops, no murmurs and no rubs Skin General skin exam: other ( warm) Extrem General: No clubbing, No cyanosis and No edema Assessment & Plan Assessment & Plan (1) Interstitial lung disease: Comment: July 2023 Code(s): J84.9 - Interstitial pulmonary disease, unspecified Category: Medical Plan: Results of CT chest reviewed stable interstitial findings. Will repeat PFT, if significant worsening, will consider antifibrotic agent. Orders: Orders PFT pulmonary function test Today J84.9 - Interstitial pulmonary disease, unspecified Coding Level of Care Code Est Pt Level 3 (35570) Diagnoses Interstitial lung disease J84.9
== END 2024-02-13 10:35 | disposition home or self-care (01) ==
PROVIDERS: PCP Internal Medicine; Visit Provider Internal Medicine Pulmonary Disease
DX: J84.9 Interstitial pulmonary disease, unspecified (principal)
CPT/HCPCS: 99213

== ENCOUNTER → 2024-02-13 10:25 | Outpatient (BNVA) | payer MEDICARE, SELFPAY | PROVIDERS: PCP Internal Medicine; Visit Provider Internal Medicine Pulmonary Disease | DX: J84.9 Interstitial pulmonary disease, unspecified (principal); Z87.891 Personal history of nicotine dependence | CPT/HCPCS: 99212 ==

== ENCOUNTER 2024-03-31 10:13 | Outpatient (AMB) | payer MEDICARE, SELFPAY ==
--- NOTE | 2024-03-31 10:30 | AM.OFFVISNUR ---
Intake Visit Reasons: Tetanus shot Allergies Sulfa (Sulfonamide Antibiotics) Allergy (Unknown, Verified 02/13/24 10:32) hives simvastatin Adverse Reaction (Intermediate, Verified 02/13/24 10:32) myalgia Assessment & Plan Assessment & Plan Orders: Orders Td State Immunization Today Z23 - Encounter for immunization Medications: New tetanus-diphtheria toxoids-Td 0.5 mL IM ONCE 0.5 mL 0RF Z23 - Encounter for immunization
== END 2024-03-31 10:33 | disposition home or self-care (01) ==
PROVIDERS: PCP Internal Medicine; Visit Provider Internal Medicine
DX: Z23 Encounter for immunization (principal)
CPT/HCPCS: 90471; 90714

== ENCOUNTER 2024-05-28 12:12 | Outpatient (AMB) | payer MEDICARE, SELFPAY ==
[2024-05-28 12:32] VITALS: BP 126/68; PULSE 71; O2SAT 98; BMI 32.1
--- NOTE | 2024-05-28 12:32 | AM.OFFVISMDC ---
Intake Vital Signs 05/28/24 12:32 Height 5 ft 5 in Weight 193 lb 0.8 oz BMI 32.1 BP 126/68 Blood Pressure Location Lt brachial Position Sitting Pulse 71 Pulse Source Pulse Oximeter Pulse Oximetry (%) 98 Oxygen Delivery Method Room Air Intake Visit Reasons: SWV [id number] Allergies Sulfa (Sulfonamide Antibiotics) Allergy (Unknown, Verified 05/28/24 12:32) hives simvastatin Adverse Reaction (Intermediate, Verified 05/28/24 12:32) myalgia Medication List - Last Reconciled 05/28/24 by David Luna MD bupropion HCl XL (Wellbutrin XL) 300 mg PO QAM 90 days cholecalciferol (vitamin D3) 50 mcg PO DAILY 90 days cyclobenzaprine 5 mg PO TID PRN 90 days escitalopram oxalate (Lexapro) 5 mg PO DAILY levothyroxine 125 mcg PO QAM pravastatin 20 mg PO BEDTIME 90 days HPI SWV [id number] HPI Details 69-year-old obese female with diabetes mellitus hypothyroidism hypercholesterolemia interstitial lung disease generalized anxiety disorder osteoporosis last seen in November 2023. Patient had bone density done December 2023 having osteoporosis mammogram up-to-date colonoscopy due. Patient has seen Pulmonary in February 12 having moderate interstitial lung disease(08/10/2023) stable denies any dyspnea. PFT pending. Bone density left femur no significant change spine no significant change. October was the last blood work. Patient was advised to get a thyroid test but this was not done. Bone density February osteoporosis 12/2023 Mammogram February Colonoscopy August [address] Nance Pap smear done [address] Nance [facility] [place] [facility] Private fall - dog pulled march, R sided chest pain, took OTC better Chest tightness on exertion january [facility], [facility] Medical History (Updated 08/21/23 @ 10:32 by David Luna MD) Osteopenia Abnormal chest x-ray Fracture of fifth toe, left, closed De Quervain's tenosynovitis Hypercholesterolemia Type 2 diabetes mellitus with hyperglycemia Fatty liver Tubular adenoma of colon Degenerative disc disease, cervical Hypothyroid Vitamin D deficiency Surgical History (Updated 06/22/20 @ 13:59 by Annabelle Connell) H/O rectocele repair History of tonsillectomy History of bladder surgery History of tubal ligation History of section Family History (Updated 09/26/22 @ 08:31 by Kirsten Bhat CMA) Father No problems noted. Mother Lymphoma Maternal Grandmother Lymphoma Maternal Aunt Bone cancer Social History (Updated 11/15/22 @ 15:33 by David Luna MD) Housing: House Alcohol intake: current Alcohol intake frequency: a few times a week Patient Tobacco Use Status: Former Tobacco user Tobacco use type: Cigarette Years Smoked: quit 18 years old e-Cigarette/Vaping Use: Never Used Second Hand Smoke Exposure: No Current occupational status: retired Cognitive needs: No Hearing needs: No Vision needs: No Questionnaire Medicare Wellness Checkup [age] What gender do you identify with?: female During the past 4 weeks, how much have you been bothered by emotional problems such as feeling anxious, depressed, irritable, sad or downhearted, and blue?: slightly During the past 4 weeks, has your physical & emotional health limited your social activities with family, friends, neighbors, or groups?: moderately During the past 4 weeks, how much bodily pain have you generally had?: moderate pain During the past 4 weeks, was someone available to help you if you needed & wanted help?: yes, as much as I wanted During the past 4 weeks, what was the hardest physical activity you could do for at least 2 minutes?: moderate Can you get to places out of walking distance without help? (For eg., can you travel alone on buses, taxis or drive your car?): Yes Can you go shopping for groceries or clothes without someone's help?: Yes Can you prepare your own meals?: Yes Can you do your housework without help?: Yes Because of any health problems, do you need the help of another person with your personal care needs such as eating, bathing, dressing or getting around the house?: No Can you handle your own money without help?: Yes During the past 4 weeks, how would you rate your health in general?: very good During the past 4 weeks how have things been going for you?: pretty well Do you always fasten your seat belt when you are in a car?: yes, usually During past 4 weeks, have you been bothered by the following: never: Sexual problems? and seldom: Falling or dizzy when standing up, Trouble eating well?, Teeth or denture problems?, Problems using the telephone? and Tiredness or fatigue? Have you fallen 2 or more times in the past year?: Yes Are you afraid of falling?: No Are you a smoker?: no During the past 4 weeks, how many drinks of wine, beer, or other alcoholic beverages did you have?: 2-5 drinks per week Do you exercise for about 20 minutes 3 or more times a week?: yes, some of the time Have you been given information to help with the following?: no: Hazards in your house that might hurt you? and no: Keeping track of your medications? How often do you have trouble taking medicines the way you have been told to take them?: I always take medicine as prescribed How confident are you that you can control & manage most of your health problems?: very confident What is your race?: White PHQ-9 Over the last 2 weeks, how often have you been bothered by any of the following problems? 1. Little interest or pleasure in doing things: several days 2. Feeling down, depressed, or hopeless: several days 3. Trouble falling or staying asleep, or sleeping too much: several days 4. Feeling tired or having little energy: several days 5. Poor appetite or overeating: several days 6. Feeling bad about yourself - or that you are a failure or have let yourself or your family down: several days 7. Trouble concentrating on things, such as reading the newspaper or watching television: not at all 8. Moving or speaking so slowly that other people could have noticed. Or the opposite - being so fidgety or restless that you have been moving around a lot more than usual: not at all 9. Thoughts that you would be better off or of hurting yourself in some way: not at all Total score: 6 Depression Screening Interpretation: Positive Depression Screening Follow-up: Existing condition and In treatment Depression Screening Done: Yes 64065 - PHQ-9 Billing: Yes Source: Developed by Drs. Obie Quick, Pepper Kruger, Mir Reddy and colleagues, with an educational sourav from [employer]. Review of Systems Const Denies poor appetite and Denies weakness Eyes Denies no additional complaints ENT Reports Normal hearing present, Denies dizziness, Denies nasal congestion, Denies tinnitus and Denies sore throat Card Denies chest pain, Denies syncope, Denies rapid heart rate and Denies dyspnea Resp Denies cough and Denies dyspnea GI Denies change in stool character, Reports constipation, Denies diarrhea, Denies nausea and Denies vomiting Denies urinary frequency, Denies difficulty voiding and Denies dysuria Neuro Reports Normal hearing present, Denies confusion, Denies dizziness, Denies syncope and Denies weakness Psych Denies confusion Physical Exam Vital Signs: Oxygen Delivery Method Room Air 05/28/24 12:32 BMI result Body Mass Index 32.1 Const General: No confusion Orientation/consciousness: No confusion HEENT Head: Yes normocephalic Ears: external ears normal and TM's normal bilaterally Face and sinus: Yes normal facial exam Mouth: moist mucous membranes Throat: Yes tonsils normal Eyes Conjunctivae: conjunctivae normal Pupils: Equal, round and reactive pupils present and Pupil accommodation reflex normal Direct Ophthalmoscopy: normal light reflex Neck Neck: No lymphadenopathy Thyroid: Thyroid normal Chest Chest palpation & inspection: normal inspection of the chest Resp Effort & Inspection: normal respiratory effort and no audible wheezes Auscultation: clear to auscultation bilaterally, no crackles, no wheezes and lung sounds not diminished Cardio Rate: regular rate Rhythm: regular rhythm Peripheral pulses: radial pulses present and dorsalis pedis present GI Other: colon test to be done Palpation (GI): no masses Auscultation: normal bowel sounds and normoactive bowel sounds Rectal Exam - Female: deferred Skin General skin exam: no rashes or lesions noted Rashes: no rashes Neuro General: No confusion Cranial nerves: Yes Equal, round and reactive pupils present and Yes Normal hearing present Cognition (Neuro): normal cognition Gait exam (Neuro): Normal gait present Motor exam (neuro): 5/5 motor strength present throughout Deep tendon reflexes (DTR's): Right brachioradialis reflex intensity grade: 2+, Left brachioradialis reflex intensity grade: 2+, Right patellar reflex intensity grade: 2+ and Left patellar reflex intensity grade: 2+ Extrem General: No edema Results AMB Hemoglobin A1c AMB Hemoglobin A1c 6.8 % Last Edit by KORY Perales on 05/28/24 12:43 Assessment & Plan Assessment & Plan (1) Medicare annual wellness visit, subsequent: Code(s): Z00.00 - Encounter for general adult medical examination without abnormal findings Plan: Patient is advised to eat healthy, keep well hydrated, keep active and have adequate sleep. (2) Colon cancer screening: Code(s): Z12.11 - Encounter for screening for malignant neoplasm of colon Plan: Reminded patient about colon cancer screening (3) Interstitial lung disease: Comment: July 2023 Code(s): J84.9 - Interstitial pulmonary disease, unspecified Plan: Patient follows up with Pulmonary and her lung function test is pending. (4) Type 2 diabetes mellitus with hyperglycemia: Comment: [facility] Code(s): E11.65 - Type 2 diabetes mellitus with hyperglycemia Qualifiers: Diabetes mellitus long chain quiller tender insulin use: without long chain quiller tender use Qualified Code(s): E11.65 - Type 2 diabetes mellitus with hyperglycemia Plan: Decrease the amount of carbohydrate intake, pasta, bread, rice and potatoes are all sugar and that is aside from all the sweet stuff, remember that fruits are good but they are Sweet also. Hemoglobin A1c goal of less than 7.0 patient is diet controlled (5) Hypothyroid: Code(s): E03.9 - Hypothyroidism, unspecified Qualifiers: Hypothyroidism type: acquired Qualified Code(s): E03.9 - Hypothyroidism, unspecified Plan: Continue with thyroid medication and advised to retest (6) Hypercholesterolemia: Code(s): E78.00 - Pure hypercholesterolemia, unspecified Plan: Avoid fried foods, chicken skin, eggs, butter margarine, pastries and meat. Be it pork or beef they have a lot of cholesterol LDL goal of less than 100 and triglyceride of less than 150. Jaki was the last blood work (7) Generalized anxiety disorder: Comment: Prescriber scheduled and counselling, [facility]. Code(s): F41.1 - Generalized anxiety disorder Plan: Continue with counseling and therapy Orders: Orders AMB Hemoglobin A1c Today E11.65 - Type 2 diabetes mellitus with hyperglycemia Referrals Gastroenterology Referral Z12.11 - Encounter for screening for malignant neoplasm of colon Medications: Refilled cyclobenzaprine 5 mg PO TID 90 days PRN 90 tabs 0RF for muscle spasm E11.65 - Type 2 diabetes mellitus with hyperglycemia Quality Reporting (2019) Depression/Bipolar (159/160/161/177) PHQ-9: Total score: 6 Coding Level of Care Code Medicare Subsequent (G0439) Diagnoses Medicare annual wellness visit, subsequent Z00.00 Colon cancer screening Z12.11 Interstitial lung disease J84.9 Type 2 diabetes mellitus with hyperglycemia, without long-term current use of insulin E11.65 Diabetes mellitus long chain quiller tender insulin use: without long chain quiller tender use Acquired hypothyroidism E03.9 Hypothyroidism type: acquired Hypercholesterolemia E78.00 Generalized anxiety disorder F41.1 Additional Codes PHQ-9 - 53366 - PHQ-9 Billing: Yes ([id number])
== END 2024-05-28 13:08 | disposition home or self-care (01) ==
LOC: HO.HMCH 12:13
PROVIDERS: PCP Internal Medicine; Visit Provider Internal Medicine
DX: Z00.00 Encounter for general adult medical examination without abnormal findings (principal); J84.9 Interstitial pulmonary disease, unspecified; E11.65 Type 2 diabetes mellitus with hyperglycemia; Z12.11 Encounter for screening for malignant neoplasm of colon; E03.9 Hypothyroidism, unspecified; E78.00 Pure hypercholesterolemia, unspecified; F41.1 Generalized anxiety disorder

== ENCOUNTER → 2024-05-28 12:12 | Outpatient (BNVA) | payer MEDICARE, SELFPAY | PROVIDERS: PCP Internal Medicine; Visit Provider Internal Medicine | DX: Z00.00 Encounter for general adult medical examination without abnormal findings (principal); E11.65 Type 2 diabetes mellitus with hyperglycemia; J84.9 Interstitial pulmonary disease, unspecified; E03.9 Hypothyroidism, unspecified; E78.00 Pure hypercholesterolemia, unspecified; F41.1 Generalized anxiety disorder | CPT/HCPCS: 83036; 96127 ==

== ENCOUNTER 2024-06-03 08:08 | Outpatient (REF) | payer MEDICARE, SELFPAY ==
[2024-06-03 08:43] LABS: Appearance Urine Clear; Color Urine Yellow; Glucose Urine UA Negative (Negative); Leukocyte Esterase Urine Small (1+) (Negative); Nitrite Urine Negative (Negative); PH 5.5 (5.0-9.0); Specific Gravity - Urine 1.015 (1.005-1.025); UMIC TRIGGER UACC YES; Urine Blood Negative (Negative); Urine Ketones Negative (Negative); Urine Protein Negative (Neg-Trace)
[2024-06-03 09:01] LABS: Bacteria Urine None Seen (None Seen); Hyaline Casts Urine 0-2 /LPF (0-2); RBC Urine 0-2 /HPF (0-2); Squamous Epithelial Cell Urine 0-2 /HPF (0-2); UACC Culture Trigger YES; WBC Urine 0-5 /HPF (0-5)
[2024-06-03 09:02] LABS: Creatinine Urine 104.83 mg/dL
[2024-06-03 09:09] LABS: Free T4 (Free Thyroxine) 1.16 ng/dL (0.71-1.85); Thyroid Stimulating Hormone 2.51 uIU/mL (0.32-4.0)
== END 2024-06-03 08:09 | disposition home or self-care (01) ==
LOC: HO.LAB 08:08
PROVIDERS: PCP Internal Medicine; Visit Provider Internal Medicine
DX: E11.65 Type 2 diabetes mellitus with hyperglycemia (principal); E03.9 Hypothyroidism, unspecified; R30.0 Dysuria
CPT/HCPCS: 36415; 81001; 82570; 84439; 84443; 87086

== ENCOUNTER 2024-09-11 09:19 | Outpatient (AMB) | payer MEDICARE, SELFPAY ==
[2024-09-11 09:28] VITALS: BP 136/80; PULSE 81; O2SAT 94; BMI 32.3
--- NOTE | 2024-09-11 09:28 | A.OFFPC_ITS ---
Vital Signs 09/11/24 09:28 Height 5 ft 5 in Weight 194 lb BMI 32.3 BP 136/80 Blood Pressure Location Lt brachial Position Sitting Pulse 81 Pulse Source Pulse Oximeter Pulse Oximetry (%) 94 Oxygen Delivery Method Room Air Intake Visit Reasons: discuss headaches & stiffness in back when wake up Allergies Sulfa (Sulfonamide Antibiotics) Allergy (Unknown, Verified 09/11/24 09:28) hives simvastatin Adverse Reaction (Intermediate, Verified 09/11/24 09:28) myalgia Medication List - Last Reconciled 09/11/24 by Heather Byrne PA-C bupropion HCl XL (Wellbutrin XL) 300 mg PO QAM 90 days cholecalciferol (vitamin D3) 50 mcg PO DAILY 90 days cyclobenzaprine 5 mg PO TID PRN 90 days escitalopram oxalate (Lexapro) 5 mg PO DAILY levothyroxine 125 mcg PO QAM meclizine 12.5 mg PO TID PRN metformin 500 mg PO DAILY pravastatin 20 mg PO BEDTIME 90 days Tobacco use date assessed: 09/11/24 Fall risk assessment: No Falls in past year Last assessed Fall Risk: 09/11/24 Dental Screening Dental Screen Date: 09/11/24 Did you have a dental visit in the last 12 months?: Yes Did you have a dental problem in the last 6 months where you did not have access to dental care?: No Was dental information given to patient?: Patient has dentist HPI discuss headaches & stiffness in back when wake up HPI Details 69-year-old female with past medical his tory of diabetes mellitus, hypothyroidism, hypercholesterolemia, interstitial lung disease, generalized anxiety disorder, osteoporosis last seen 05/[address] Luna coming in for acute problem. Presenting with dizziness, lightheadedness, and shortness of breath. These symptoms have been ongoing for four to five months, with dizziness predominantly occurring in the morning. She reports a persistent crunchy sensation in her ear and pulsatile sounds, suggestive of possible vertigo, though no hearing loss has been noted. Shortness of breath was noted with mild exertion, correlating with increased heart rate. This symptom improved upon returning from a convention last summer. Back pain is described as muscular, localized, and unrelated to specific activity or trauma. [facility] Medical History Osteopenia Abnormal chest x-ray Fracture of fifth toe, left, closed De Quervain's tenosynovitis Hypercholesterolemia Type 2 diabetes mellitus with hyperglycemia Fatty liver Tubular adenoma of colon Degenerative disc disease, cervical Hypothyroid Vitamin D deficiency Surgical History H/O rectocele repair History of tonsillectomy History of bladder surgery History of tubal ligation History of section Family History Father No problems noted. Mother Lymphoma Maternal Grandmother Lymphoma Maternal Aunt Bone cancer Social History Housing: House Alcohol intake: current Alcohol intake frequency: a few times a week Patient Tobacco Use Status: Former Tobacco user Tobacco use type: Cigarette Years Smoked: quit 18 years old e-Cigarette/Vaping Use: Never Used Second Hand Smoke Exposure: No Current occupational status: retired Cognitive needs: No Hearing needs: No Vision needs: No Questionnaire PHQ-9 Over the last 2 weeks, how often have you been bothered by any of the following problems? 1. Little interest or pleasure in doing things: several days 2. Feeling down, depressed, or hopeless: several days 3. Trouble falling or staying asleep, or sleeping too much: several days 4. Feeling tired or having little energy: several days 5. Poor appetite or overeating: several days 6. Feeling bad about yourself - or that you are a failure or have let yourself or your family down: several days 7. Trouble concentrating on things, such as reading the newspaper or watching television: not at all 8. Moving or speaking so slowly that other people could have noticed. Or the opposite - being so fidgety or restless that you have been moving around a lot more than usual: not at all 9. Thoughts that you would be better off or of hurting yourself in some way: not at all Total score: 6 Depression Screening Interpretation: Positive Depression Screening Follow-up: Existing condition and In treatment Depression Screening Done: Yes 24158 - PHQ-9 Billing: Yes Source: Developed by Drs. Obie Quick, Pepper B.Mir Rossi and colleagues, with an educational sourav from [employer]. Thrive Questionnaire Date Thrive assessed: 09/11/24 I am a: Patient What is your living situation today?: I have a steady place to live Within the past 12 months, did the food you bought not last and you didn't have the money to get more?: Never true Within the past 12 months, did you worry whether your food would run out before you got money to buy more?: Never true Do you have trouble paying for medicines?: No Do you have trouble getting transportation to medical appointments?: No Do you have trouble paying your heating and electricity bill?: No Do you have trouble taking care of your child, family member or friend?: No Do you have trouble with day-to-day activities such as bathing, preparing meals, shopping, managing finances, etc.?: No Are you currently unemployed and looking for a job?: No Are you interested in more education?: No Currently or been in a relationship where the following occur: No concerns reported THRIVE Score: 0 AUDIT C Alcohol Use Questionnaire (AUDIT-C) 1. How often do you have a drink containing alcohol?: 2-3 times a week 2. How many drinks containing alcohol do you have on a typical day when you are drinking?: 1 or 2 3. How often do you have six or more drinks on one occasion?: Never Total Score: 3 PEARL-7 AMB Questionnaire PEARL-7 Date PEARL - 7 assessed: 09/11/24 (in treatment ) Feeling nervous, anxious, or on edge: 0 = Not at all Not being able to stop or control worryin = Not at all Worrying too much about different things: 0 = Not at all Trouble relaxin = Not at all Being so restless that it is hard to sit still: 0 = Not at all Becoming easily annoyed or irritable: 0 = Not at all Feeling afraid as if something awful might happen: 0 = Not at all Total PEARL-7 score (0-4 normal; 5-9 mild; 10-14 moderate; 15-21 severe): 0 Source: Developed by Drs. Obie Quick, Mir Villatoro and colleagues, with an educational sourav from [employer]. Review of Systems Const Denies body aches, Denies chills, Denies fever(s), Denies headache(s) and Denies poor appetite Eyes Reports no additional complaints ENT Denies dysphagia, Reports dizziness, Denies headache(s) and Denies odynophagia Card Denies chest pain, Denies chest pain with activity, Denies syncope, Denies edema, Denies irregular heart rhythm, Reports lightheadedness, Denies dyspnea and Reports dyspnea on exertion Resp Denies cough, Denies dyspnea and Reports dyspnea on exertion GI Denies abdominal pain, Denies constipation, Denies dysphagia, Denies diarrhea, Denies nausea, Denies odynophagia and Denies vomiting Reports no additional complaints Musc Reports no additional complaints and Denies abnormal gait Skin/Breast Reports system reviewed and no additional complaints, except as documented Neuro Denies abnormal gait, Reports dizziness, Denies syncope and Denies headache(s) Psych Reports no additional complaints Physical exam (Primary Care) Vital Signs: Last Vital Signs Pulse 81 09/11/24 09:28 BP 136/80 09/11/24 09:28 Pulse Ox 94 09/11/24 09:28 Oxygen Delivery Method Room Air 09/11/24 09:28 BMI result Body Mass Index 32.3 Tobacco/Smoking Status: Tobacco use Status Tobacco use date assessed 09/11/24 09/11/24 09:29 Patient Tobacco Use Status Former Tobacco user 09/11/24 09:29 Tobacco use type Cigarette 09/11/24 09:29 e-Cigarette/Vaping Use Never Used 09/11/24 09:29 PHQ-9: PHQ-9 Score PHQ-9: Total score 6 09/11/24 09:51 Depression Screening Interpretation: Positive Depression Screening Follow-up: Existing condition and In treatment Thrive Assessment: Date of Thrive Assessment Date Thrive assessed 09/11/24 09/11/24 09:29 Currently or been in a relationship where the following occur: No concerns reported Const General: cooperative, healthy appearing, comfortable and no acute distress Orientation/consciousness: patient oriented x3 HENMT Head: Yes normocephalic Ears: hearing grossly normal bilaterally, TM's normal bilaterally and EAC's normal General nose exam: Normal external nose present Eyes General: appearance normal, both eyes and all related structures Conjunctivae: conjunctivae normal Neck Neck: Yes full ROM and Yes no lymphadenopathy Resp Effort & Inspection: normal respiratory effort Auscultation: clear to auscultation bilaterally, no crackles, no rales, no rhonchi and no wheezes Cardio Rate: regular rate Rhythm: regular rhythm Bruits: no carotid bruits Back/Spine/Pelvis Other: Tenderness to palpation over left paraspinal muscles. No tenderness to palpation over spine Skin General skin exam: no rashes or lesions noted Neuro General: patient oriented x3 Gait exam (Neuro): Normal gait present Extrem General: Yes normal to inspection, Yes full ROM and No edema Psych Affect: normal affect Attitude: cooperative Insight: Good insight present (Psych) Judgement: Good judgement present (Psych) Results AMB Hemoglobin A1c AMB Hemoglobin A1c 7.3 % Last Edit by Kirsten Bhat CMA on 09/11/24 09 :52 Results Reviewed Results Reviewed: Laboratory Last Values Hgb A1c (Clinic) 7.3 % (4.0-6.0) H 09/11/24 09:30 Coding Level of Care Code Est Pt Level 4 (58882) Diagnoses Interstitial lung disease J84.9 Hypercholesterolemia E78.00 Type 2 diabetes mellitus with hyperglycemia, without long-term current use of insulin E11.65 Diabetes mellitus intermediate insulin use: without intermediate use Acquired hypothyroidism E03.9 Hypothyroidism type: acquired BPPV (benign paroxysmal positional vertigo) H81.10 Decreased hearing H91.90 Dyspnea on exertion R06.09 Back pain M54.9 Additional Codes PHQ-9 - 58248 - PHQ-9 Billing: Yes ([id number]) Assessment & Plan Assessment & Plan (1) Interstitial lung disease: Comment: July 2023 Code(s): J84.9 - Interstitial pulmonary disease, unspecified Category: Medical Plan: Advised patient to follow up with pulmonology she is due for a pulmonary function test and follow up. (2) Hypercholesterolemia: Code(s): E78.00 - Pure hypercholesterolemia, unspecified Category: Medical Plan: Avoid foods that are high in cholesterol such as red meat, fried foods, eggs and baked goods. Triglyceride goal of less than 150 and LDL goal of less than 100. Ordered for updated blood work currently on pravastatin 20 mg (3) Type 2 diabetes mellitus with hyperglycemia: Comment: [facility] Code(s): E11.65 - Type 2 diabetes mellitus with hyperglycemia Category: Medical Qualifiers: Diabetes mellitus intermediate insulin use: without crab steamer use Qualified Code(s): E11.65 - Type 2 diabetes mellitus with hyperglycemia Plan: Decrease the amount of carbohydrates such as pasta, bread, rice, and potatoes and limit the amount of sweets. Although fruits are generally healthy they s hould be eaten in moderation as they are still high in sugar. Hemoglobin A1c goal of less than 7%. Patient has previously been managed by diet however A1c has been increasing over the last several years and today is 7.4%. Started on metformin 500 mg daily advised to follow up in 3 months and work on dietary modification (4) Hypothyroid: Code(s): E03.9 - Hypothyroidism, unspecified Category: Medical Qualifiers: Hypothyroidism type: acquired Qualified Code(s): E03.9 - Hypothyroidism, unspecified Plan: Ordered for updated blood work (5) BPPV (benign paroxysmal positional vertigo): Code(s): H81.10 - Benign paroxysmal vertigo, unspecified ear Category: Medical Plan: A stress test will be planned to assess for cardiac-related shortness of breath and further vertigo evaluation via a referral. Meclizine is prescribed for intermittent dizziness lasting more than ten minutes. (6) Decreased hearing: Comment: R side Code(s): H91.90 - Unspecified hearing loss, unspecified ear Category: Medical Plan: Patient complaining of clogged ear feeling on the right side and vertigo-like symptoms. Ordered for hearing test for further evaluation. (7) Dyspnea on exertion: Code(s): R06.09 - Other forms of dyspnea Category: Medical Plan: A stress test will be planned to assess for cardiac-related shortness of breath and further vertigo evaluation via a referral. Reviewed red flag symptoms and when to present for re-evaluation (8) Back pain: Code(s): M54.9 - Dorsalgia, unspecified Category: Medical Plan: On exam patient has been to palpation over left paraspinal muscles. Likely muscular in nature.Musculoskeletal pain in the back and neck will be managed with wet heat, stretching, use of Voltaren gel, and possibly physical therapy. Plan Patient was informed and verbally consented to the use of an ambient scribe for clinic note documentation during this visit. This note was constructed using voice recognition software. While every effort has been made to ensure accuracy and travertine installer, still areas may have been included sometimes these areas may affect the content or meeting of the given symptoms. Total time spent caring for the patient today was 20 minutes. This includes time spent before the visit reviewing the chart, time spent during the visit, and time spent after the visit and documentation. Orders: Orders CA stress test Today R06.09 - Other forms of dyspnea PT Evaluation and Treatment Today H81.10 - Benign paroxysmal vertigo, unspecified ear Comprehensive Met. Panel Today E11.65 - Type 2 diabetes mellitus with hyperglycemia, Z00.00 - Encounter for general adult medical examination without abnormal findings TSH reflex Free T4 Today E11.65 - Type 2 diabetes mellitus with hyperglycemia, Z00.00 - Encounter for general adult medical examination without abnormal findings Vitamin B12 and Folate Today E11.65 - Type 2 diabetes mellitus with hyperglycemia, Z00.00 - Encounter for general adult medical examination without abnormal findings Vitamin D 25-OH Total Today E11.65 - Type 2 diabetes mellitus with hyperglycemia, Z00.00 - Encounter for general adult medical examination without abnormal findings AMB Hemoglobin A1c Today Z13.9 - Encounter for screening, unspecified Complete Blood Count Auto Diff Today E11.65 - Type 2 diabetes mellitus with hyperglycemia, Z00.00 - Encounter for general adult medical examination without abnormal findings Free T4 (Free Thyroxine) Today E11.65 - Type 2 diabetes mellitus with hyperglycemia, Z00.00 - Encounter for general adult medical examination without abnormal findings Lipid Panel Today E11.65 - Type 2 diabetes mellitus with hyperglycemia, E78.00 - Pure hypercholesterolemia, unspecified Referrals Speech and Hearing Referral H81.10 - Benign paroxysmal vertigo, unspecified ear, H91.90 - Unspecified hearing loss, unspecified ear Medications: New meclizine 12.5 mg PO TID PRN 30 tabs 0RF dizziness metformin 500 mg PO DAILY 90 tabs 0RF
--- OUTSIDE RECORDS SUMMARY | 2024-09-11 09:46 | XMS_ITS | Patient Health Record ---
Author Organization [facility] Address [address] [place] [address] Care Team Providers Care Supervisor Clam Bed Name Role Phone Po David SPARKS Primary Care Provider Obie Cee [phone] ALLERGIES No Known Allergies REASON FOR REFERRAL No Information MEDICATIONS Medication SIG (Take, Route, Frequency, Duration) Notes Start Date End Date Status Levoxyl 1.25mg 1 tablet on an empty stomach in the morning Orally Once a day Active Wellbutrin XL 300 MG 1 tablet in the mor sal Orally Once a day Active Levothyroxine Sodium 125 MCG TAKE ONE TA BLET BY MOUTH EVERY DAY IN THE MORNING. Oral for 90 Days Active Cyclobenzaprine HCl 5 MG Oral for 90 Days Active buPROPion HCl ER (XL) 300 MG Oral for 90 Days Active Pravastatin Sodium 20 MG TAKE ONE TABLET BY MOUTH ONCE DAILY AT BEDTIME Oral for 90 Days Active Escitalopram Oxalate 5 MG TAKE ONE TABLE T BY MOUTH EVERY DAY Oral for 90 Days Active IMMUNIZATIONS Vaccine Route Administration Date Status Comme nts Influenza Unknown 05/06/2018 Administered Influenza Unknown 05/12/2024 Administered SOCIAL HISTORY Tobacco Use: Social History Observation Description Date Details (start date - stop date) Former Smoker NA - NA Sex Assigned At : Social History Observation Description Sex Assigned At Unknown Tobacco Use/Smoking Question Answer Notes Patient is a former smoker How long has it been since you last smoked? > 10 years PROBLEMS Problem Type ICD Code Onset Dates Problem Status W/U Status Risk SNOMED Code Notes Problem Encounter for screening for malignant neoplasm of colon (Z12.11) Active confirmed 865955931 Problem Hx of adenomatous colonic polyps (Z86.010) Active confirmed 414364657 Problem Pre-procedural examination (Z01.818) Active confirmed [id number] VITAL SIGNS Temperature 97.5 degrees Fahrenheit 09/09/2024 Blood pressure diastolic 01 mm Hg 09/09/2024 Height 65.50 in 09/09/2024 Blood pressure systolic 001 mm Hg 09/09/2024 Weight 194.2 lbs 09/09/2024 BMI 31.82 kg/m2 09/09/2024 Encounters Encounter Location Date Provider Diagnosis [facility] [address] [place] [address] 09/09/2024 Obie Nance Hx of adenomatous colonic polyps Z86.010 ; Encounter for screening for malignant neoplasm of colon Z12.11 and Pre-procedural examination Z01.818 ASSESSMENTS Encounter Date Diagnosis Assessment Notes Treatment Notes Treatment Clinical Notes 09/09/2024 Hx of adenomatous colonic polyps (ICD-10 - Z86.010) 09/09/2024 Encounter for screening for malignant neoplasm of colon (ICD-10 - Z12.11) 09/09/2024 Pre-procedural examination (ICD-10 - Z01.818) PLAN OF TREATMENT Future Test Test Name Order Date COLONOSCOPY 07/29/2012 COLONOSCOPY 06/27/2018 COLONOSCOPY 09/09/2024 Next Appt Details Provider Name:Obie Nance , 09/28/2024 02:40:00 PM, [address] [place] [address] , [place], [place], [id number], Insurance Providers Payer Name Payer Address Payer Phone Subscriber Number Group Number Insured Name Patient Relationship to Insured Coverage Start Date Coverage End Date [place] [address] [facility] [address] [id number] DESTINY Reddy NICOLE MCCARTHY Self - patient is the insured [employer] ATT[employer] CLAIMS [address] [place] [address] [phone] [id number] DESTINY Reddy NICOLE MCCARTHY Self - patient is the insured MEDICAL (GENERAL) HISTORY Medical History History ICD Code Colonoscopy 02/24/2007-with removal of a single tubular adenoma; neg. colonoscopy in 09/2012 Depression Hypothyroidism Denies RI,DM,CVA,Lung disease,renal dise ase Neg. ETT approx. 5 years ago Negative screening colonoscopy in 2018 Surgical History Surgery Date(Month/Year) Trigger finger release Rectocele surgery Bladder suspension Hemorrhoid surgery
--- OUTSIDE RECORDS SUMMARY | 2024-09-11 09:46 | XMS_ITS ---
Author Organization [facility] Address [address] [place] [id number] Care Team Providers Care Newspaper Editor Managing Name Role Phone David Luna MD Primary Care Provider Obie Cee [phone] ALLERGIES No Known Allergies REASON FOR VISIT Patient presents today for a recall colonoscopy MEDICATIONS Medication SIG (Take, Route, Frequency, Duration) Notes Start Date End Date Status Levoxyl 1.25mg 1 tablet on an empty stomach in the morning Orally Once a day Active Wellbutrin XL 300 MG 1 tablet in the mor sal Orally Once a day Active buPROPion HCl ER (XL) 300 MG Oral for 90 Days Active Pravastatin Sodium 20 MG TAKE ONE TABLET BY MOUTH ONCE DAILY AT BEDTIME Oral for 90 Days Active Escitalopram Oxalate 5 MG TAKE ONE TABLE T BY MOUTH EVERY DAY Oral for 90 Days Active Levothyroxine Sodium 125 MCG TAKE ONE TA BLET BY MOUTH EVERY DAY IN THE MORNING. Oral for 90 Days Active Cyclobenzaprine HCl 5 MG Oral for 90 Days Active SOCIAL HISTORY Tobacco Use: Social History Observation Description Date Details (start date - stop date) Former Smoker NA - NA Sex Assigned At : Social History Observation Description Sex Assigned At Unknown Tobacco Use/Smoking Question Answer Notes Patient is a former smoker How long has it been since you last smoked? > 10 years VITAL SIGNS BMI 31.82 kg/m2 09/09/2024 Blood pressure systolic 001 mm Hg 09/09/19 25 Blood pressure diastolic 01 mm Hg 025 Height 65.50 in 09/09/2024 Temperature 97.5 degrees Fahrenheit 09/09/19 25 Weight 194.2 lbs 09/09/2024 Encounters Encounter Location Date Provider Diagnosis [facility] [address] [facility] [address] [place] [address] 09/09/2024 Obie Nance Hx of adenomatous colonic [...] Future Test Test Name Order Date COLONOSCOPY 09/09/2024 Next Appt Details Provider Name:Obie Nance , 09/28/2024 02:40:00 PM, [address] [place] [address] , [place], [place], [phone],
== END 2024-09-11 10:06 | disposition home or self-care (01) ==
PROVIDERS: PCP Internal Medicine
DX: J84.9 Interstitial pulmonary disease, unspecified (principal); E78.00 Pure hypercholesterolemia, unspecified; E11.65 Type 2 diabetes mellitus with hyperglycemia; E03.9 Hypothyroidism, unspecified; H81.10 Benign paroxysmal vertigo, unspecified ear; H91.90 Unspecified hearing loss, unspecified ear; R06.09 Other forms of dyspnea; M54.9 Dorsalgia, unspecified; Z13.9 Encounter for screening, unspecified

== ENCOUNTER → 2024-09-11 09:19 | Outpatient (BNVA) | payer MEDICARE, SELFPAY | PROVIDERS: PCP Internal Medicine | DX: J84.9 Interstitial pulmonary disease, unspecified (principal); E78.00 Pure hypercholesterolemia, unspecified; E11.65 Type 2 diabetes mellitus with hyperglycemia; E03.9 Hypothyroidism, unspecified; H81.10 Benign paroxysmal vertigo, unspecified ear; H91.10 Presbycusis, unspecified ear; R06.09 Other forms of dyspnea; M54.9 Dorsalgia, unspecified | CPT/HCPCS: 83036; 96127; 99212 ==

== ENCOUNTER → 2024-10-02 08:11 | Outpatient (REF) | payer MEDICARE, SELFPAY ==
--- NOTE | 2024-10-02 08:15 | CA_ITS ---
Acquisition Time: 2024-10-02 08:31:04 Total Exercise Time: 00:05:00 Test Indications: Dyspnea Medications: BUPROPION VIT D CYCLOBENZAPRINE ESCITALOPRAM MECLIZINE LEVOTHYROXINE METFORMIN PRAVASTATIN Protocol: BLAKE Max HR: 146 BPM 97% of Pred: 149 BPM Max BP: 162/68 mmHG Max Work Load: 4.6 METS Exercise Stress Test with exercise 5 mins of Blake Protocol held at Stage 1 due to leg discomfort, achieving 97% MPHR, with reports of 4/10 mid chest tightness and severe SOB, without any arrythmias, with normotensive response to exercise. Wuithout EKG chnages meeting criteria for ischemia. In recovery, SOB resolved quickly and chest tightness improved gradually. Recommend stress test with nuclear images to further evaluate the chest tightness. Test reviewed with Dr. Martin. Referred By: Heather Byrne Electronically Signed By: Francisco J Rossi
--- OUTSIDE RECORDS SUMMARY | 2024-10-02 08:17 | XMS_ITS ---
Author Organization [facility] Address [address] [place] [phone] Care Team Providers Care Hadoop Infrastructure Architect Name Role Phone David Luna MD Primary Care Provider Obie Cee [phone] Allergies No Known Allergies REASON FOR VISIT Patient presents today for a recall colonoscopy Medications Medication SIG (Take, Route, Frequency, Duration) Notes [...] 5 MG Oral for 90 Days Active Social History Tobacco Use: Social History Observation Description Date Details (start date - stop date) Former Smoker NA - NA Tobacco Use/Smoking Question Answer Notes Patient is a former smoker How long has it been since you last smoked? > 10 years Section Notes: Nonsmoker; occasional alcoho l Vital Signs Temperature 97.5 degrees Fahrenheit 09/09/19 25 Blood pressure systolic 001 mm Hg 09/09/19 25 Blood pressure diastolic 01 mm Hg 025 Height 65.50 in 09/09/2024 Weight 194.2 lbs 09/09/2024 BMI 31.82 kg/m2 09/09/2024 Encounters Encounter Location Date Provider Diagnosis [facility] [address] [place] [address] 09/09/2024 Obie Nance Hx of adenomatous colonic polyps Z86.010 ; Encounter for screening for malignant neoplasm of colon Z12.11 and Pre-procedural examination Z01.818 Assessments Encounter Date Diagnosis (ICD Code) Assessment Notes Treatment Notes Treatment Clinical Notes Section Notes 09/09/2024 Hx of adenomatous colonic polyps (ICD-10 - Z86.010) Overall, Nicole Jacques appears quite well. Given her age, good clinical appearance, previous history of a tubular adenoma, and her last colonoscopy being 6 years ago, I did recommend a followup colonoscopy for further screening purposes. We did review the rationale for this regard to colon cancer prevention. Full consent was obtained for this, including risks of bleeding and perforation. The procedure will be done with monitored anesthesia care. Nicole Jacques was comfortable with this plan. Thank you again for allowing me to participate in Nicole Jacques's care. I shall continue to keep you advised of her progress. 09/09/2024 Encounter for screening for malignant neoplasm of colon (ICD-10 - Z12.11) Overall, Nicole Jacques appears quite well. Given her age, good clinical appearance, previous history of a tubular adenoma, and her last colonoscopy being 6 years ago, I did recommend a followup colonoscopy for further screening purposes. We did review the rationale for this regard to colon cancer prevention. Full consent was obtained for this, including risks of bleeding and perforation. The procedure will be done with monitored anesthesia care. Nicole Jacques was comfortable with this plan. Thank you again for allowing me to participate in Nicole Jacques's care. I shall continue to keep you advised of her progress. 09/09/2024 Pre-procedural examination (ICD-10 - Z01.818) Overall, Nicole Jacques appears quite well. Given her age, good clinical appearance, previous history of a tubular adenoma, and her last colonoscopy being 6 years ago, I did recommend a followup colonoscopy for further screening purposes. We did review the rationale for this regard to colon cancer prevention. Full consent was obtained for this, including risks of bleeding and perforation. The procedure will be done with monitored anesthesia care. Nicole Jacques was comfortable with this plan. Thank you again for allowing me to participate in Nicole Jacques's care. I shall continue to keep you advised of her progress. Plan Of Treatment Future Test Test Name Order Date COLONOSCOPY 09/09/2024 Progress Notes * NICOLE TERESADOB:[birth year] (69 yo F)Acc No.[id number]:09/09/2024 Progress Notes Patient:?NICOLE TERESA Provider:?Obie Nance MD :1955???Age:69 Y???Sex:Female D ate:09/09/2024 Address:[address] [place], [place] [id number] Pcp:David Luna MD Subjective: * Chief Complaints: * ???1. Patient presents today for a recall colonoscopy. * HPI: ???incontinence:? I saw Nicole Jacques in the office today for evaluation of her personal history of a tubular adenoma of the colon and need for colorectal cancer screening. I last saw Nicole Jacques August of 2018, at which time she underwent a followup screening colonoscopy that was negative for any polyps. She currently feels well. She enjoys a good appetite, without any significant heartburn or dysphagia. Her bowel movements have been regular, without any hematochezia nor melena. She denies abdominal pain, jaundice, nor unintentional weight loss. She denies any known family history of colon cancer. * Medical History:?Colonoscopy 02/24/2007-with removal of a single tubular adenoma; neg. colonoscopy in 09/2012, Depression , Hypothyroidism, Denies [place],DM,CVA,Lung disease,renal disease, Neg. ETT approx. 5 years ago, Negative screening colonoscopy in August of 2018. * Surgical History:? , Hemorrhoid surgery , Bladder suspension , Rectocele surgery , Trigger finger release . * Family History:?Father: dece ased.?Mother: .? Denies family hx. of colorectal cancer. No family history of liver cancer. * Social History:?Tobacco Use:?Tobacco Use/Smoking?Patient is a?former smoker,?How long has it been since you last smoked??> 10 years.?Drugs/Alcohol:?Alcohol Screen?Points: 1, Interpretation: Negative.?Miscellaneous:?Marital status: . 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 ???Nonsmoker; occasional alcohol. * Medications:?Taking Levoxyl 1.25mg 1 tablet on an empty stomach in the morning Orally Once a day , Taking Wellbutrin XL 300 MG Tablet Extended Release 24 Hour 1 tablet in the morning Orally Once a day , Taking Escitalopram Oxalate 5 MG Tablet TAKE ONE TABLET BY MOUTH EVERY DAY Oral , Taking buPROPion HCl ER (XL) 300 MG Tablet Extended Release 24 Hour Oral , Taking Pravastatin Sodium 20 MG Tablet TAKE ONE TABLET BY MOUTH ONCE DAILY AT BEDTIME Oral , Taking Levothyroxine Sodium 125 MCG Tablet TAKE ONE TABLET BY MOUTH EVERY DAY IN THE MORNING. Oral , Taking Cyclobenzaprine HCl 5 MG Tablet Oral * Allergies:?N.K.D.A. Objective: * Vitals:?Wt: 194.2 lbs, Ht: 6 5.50 in, BMI: 31.82 Index, BP: 001/01 mm Hg, Temp: 97.5, Wt-k.09. Assessment: * Assessment: 1.?Hx of adenomatous colonic polyps - Z86.010???2.?Encounter for screening for malignant neoplasm of colon - Z12.11???3.?Pre-procedural examination - Z01.818??? Overall, Nicole Jacques appears qu ite well. Given her age, good clinical appearance, previous history of a tubular adenoma, and her last colonoscopy being 6 years ago, I did recommend a followup colonoscopy for further screening purposes. We did review the rationale for this regard to colon cancer prevention. Full consent was obtained for this, including risks of bleeding and perforation. The procedure will be done with monitored anesthesia care. Nicole Jacques was comfortable with this plan. Thank you again for allowing me to participate in Nicole Jacques's care. I shall continue to keep you advised of her progress. Plan: * Treatment: 2.?Encounter for screening for malignant neoplasm of colon?Procedure: COLONOSCOPY (Ordered for 09/09/2024)* with MACsched for 09/28/24 at 2:40 pmmiralax * Preventive Medicine:? ??Urinary Incontinence:?Urinary Incontinence?Assessment:?Absent,?Plan of care documented:?No, reason not specified.? ??Screenings:?Fall Risk Screening?Fall Risk Assessment:?No falls in the past year,?Screening:?No falls in the past year,?Assessment:?Not performed, no reason specified,?Plan of Care:?Not documented, no reason specified.? * * The named appointment provid er may or may not be the originator of this progress note, and it is not deemed complete until electronically signed by the appointment provider. Sign off status: Pending * Provider:?Obie Nance MD Date:? 025 Generated for Jose hernández/Suresh/Parishsmitting on:?10/02/2024 08:17 AM EDT History and Physical Notes * HPI (History of Present Illness) Category Sub-Category Detail Notes Category Not es incontinence I saw Nicole Jacques in the office today for evaluation of her personal history of a tubular adenoma of the colon and need for colorectal cancer screening. I last saw Nicole Jacques August of 2018, at which time she underwent a followup screening colonoscopy that was negative for any polyps. She currently feels well. She enjoys a good appetite, without any significant heartburn or dysphagia. Her bowel movements have been regular, without any hematochezia nor melena. She denies abdominal pain, jaundice, nor unintentional weight loss. She denies any known family history of colon cancer.
--- OUTSIDE RECORDS SUMMARY | 2024-10-02 08:18 | XMS_ITS | Patient Health Record ---
Author Organization [facility] Address [address] [place] [address] Care Team Providers Care Telephone Interceptor Operator Name Role Phone Po David SPARKS Primary Care Provider Obie Cee [phone] Allergies No Known Allergies Reason For Referral No Information Medications Medication SIG (Take, Route, Frequency, Duration) [...] EVERY DAY Oral for 90 Days Active Immunizations Vaccine Route Administration Date Status Comme nts Influenza Unknown 05/06/2018 Administered Influenza Unknown 05/12/2024 Administered Social History Tobacco Use: Social History Observation Description Date Details (start date - stop date) Former Smoker NA - NA Tobacco Use/Smoking Question Answer Notes Patient is a former smoker How long has it been since you last smoked? > 10 years Section Notes: Nonsmoker; occasional alcoho l Nonsmoker; occasional alcoho l Nonsmoker; occasional alcoho l Problems Problem Type SNOMED Code ICD Code Onset Dates Problem Status W/U Status Risk Notes Problem 988661583 Encounter for screening for malignant neoplasm of colon (Z12.11) Active confirmed Problem 153816663 Hx of adenomatous colonic polyps (Z86.010) Active confirmed Problem 890074605219326 Pre-procedural examination (Z01.818) Active confirmed Vital Signs Temperature 97.5 degrees Fahrenheit 09/09/2024 Blood pressure diastolic 01 mm Hg 09/09/2024 Height 65.50 in 09/09/2024 Blood pressure systolic 001 mm Hg 09/09/2024 Weight 194.2 lbs 09/09/2024 BMI 31.82 kg/m2 09/09/2024 Encounters Encounter Location Date Provider Diagnosis [facility] [address] [place] [address] 09/09/2024 Obie Nance Hx of adenomatous colonic polyps Z86.010 ; Encounter for screening for malignant neoplasm of colon Z12.11 and Pre-procedural examination Z01.818 [facility] [address] [place] [address] 09/24/2024 Obie Nance Assessments Encounter Date Diagnosis (ICD Code) Assessment Notes Treatment Notes Treatment Clinical Notes Section Notes 09/09/2024 Hx of adenomatous colonic polyps (ICD-10 - Z86.010) Overall, Nicole Mccarthy appears quite well. Given her age, good [...] be done with monitored anesthesia care. Nicole Mccarthy was comfortable with this plan. Thank you again for allowing me to participate in Nicole Mccarthy's care. I shall continue to keep you advised of her progress. 09/09/2024 Encounter for screening for malignant neoplasm of colon (ICD-10 - Z12.11) Overall, Nicole Mccarthy appears quite well. Given her age, good [...] be done with monitored anesthesia care. Nicole Mccarthy was comfortable with this plan. Thank you again for allowing me to participate in Nicole Mccarthy's care. I shall continue to keep you advised of her progress. 09/09/2024 Pre-procedural examination (ICD-10 - Z01.818) Overall, Nicole Mccarthy appears quite well. Given her age, good [...] be done with monitored anesthesia care. Nicole Mccarthy was comfortable with this plan. Thank you again for allowing me to participate in Nicole Mccarthy's care. I shall continue to keep you advised of her progress. Plan Of Treatment Future Test Test Name Order Date COLONOSCOPY 07/29/2012 COLONOSCOPY 06/27/2018 COLONOSCOPY 09/09/2024 Insurance Providers Payer Name Payer Address Payer Phone Subscriber Number Group Number Insured Name Patient Relationship to Insured Coverage Start Date Coverage End Date MEDICARE OF [place] [address] [place] [address] [id number] DESTINY Reddy NICOLE MCCARTHY Self - patient is the insured [employer] ATT[employer] CLAIMS [address] [place] [address] [id number] DESTINY Reddy, NICOLE MCCARTHY Self - patient is the insured Medical (General) History Medical History History ICD Code Colonoscopy 02/24/2007-with removal of a single tubular adenoma; neg. colonoscopy in 09/2012 Depression Hypothyroidism Denies [place],DM,CVA,Lung disease,renal dise ase Neg. ETT approx. 5 years ago Negative screening colonoscopy in 2018 Surgical History Surgery Date(Month/Year) Trigger finger release Rectocele surgery Bladder suspension Hemorrhoid surgery
--- OUTSIDE RECORDS SUMMARY | 2024-10-02 08:18 | XMS_ITS ---
Author Organization [facility] Address [address] [place] [address] Care Team Providers Care Inspector Assemblies And Installations Name Role Phone Po David SPARKS Primary Care Provider Obie Cee [phone] REASON FOR VISIT cancel procedure Encounters Encounter Location Date Provider Diagnosis [facility] [address] [place] [phone] 09/24/2024 Obie Nance Plan Of Treatment No Information Progress Notes * NICOLE TERESADOB:[birth year] (69 yo F)Acc No.[id number]:09/24/2024 Patient:?ROSANICOLE COREY ANN :1955???Age:69 Y???Sex:Female Address:[address] [place] [address] * * Date:?
--- OUTSIDE RECORDS SUMMARY | 2024-10-02 08:18 | XMS_ITS ---
Author Organization [facility] Address [address] [place] [address] Care Team Providers Care Outpatient Pharmacy Manager Name Role Phone David Luna MD Primary Care Provider Obie Cee [phone] REASON FOR VISIT screening,hx polyps Encounters Encounter Location Date Provider Diagnosis [facility] [address] [place] [phone] 09/28/2024 Obie Nance Plan Of Treatment No Information Progress Notes * NICOLE TERESA FABIODOB:[birth year] (69 yo F)Acc No.[id number]:09/28/2024 COLON WITH MAC Patient:NICOLE PRECIADO Provider:?Obie Nance MD :1955???Age:69 Y???Sex:Female D ate:09/28/2024 Address:[address] [place], [place] [phone] Pcp:David Luna MD Subjective: * Chief Complaints: * ???1. Screening,hx polyps. * Medical History:? Objective: * Vitals:? Assessment: Plan: * Treatment: * * The named appointment provid er may or may not be the originator of this progress note, and it is not deemed complete until electronically signed by the appointment provider. Sign off status: Pending * Provider:?Obie Nance MD Date:? 025 Generated for Jose hernández/Suresh/eTransmitting on:?10/02/2024 08:18 AM EDT
== END ==
LOC: HO.CARD 08:11
PROVIDERS: PCP Internal Medicine
DX: R06.09 Other forms of dyspnea (principal)
CPT/HCPCS: 93017

== ENCOUNTER → 2024-10-02 08:15 | Outpatient (BNV) | payer MEDICARE, SELFPAY | PROVIDERS: PCP Internal Medicine | DX: R06.02 Shortness of breath (principal); R07.9 Chest pain, unspecified | CPT/HCPCS: 93016; 93018 ==

== ENCOUNTER 2024-10-05 12:59 | Outpatient (RCR) | payer MEDICARE, SELFPAY ==
[2024-10-05 13:04] VITALS: BP 128/53; PULSE 58
--- NOTE | 2024-10-05 14:00 | MHC.PT.EP ---
[facility] [place] Office [place] Office [place] Office [address] [phone] F: [phone] F: [phone] F: [phone] F: [phone] Physical Therapy Plan of Care Date of Evaluation: 10/05/24 Date of Surgery: NA Diagnosis: Benign paroxysmal vertigo Assessment: Rody Jacques is a 69 year old female who is referred to PT for BPPV . She reports of having symptoms of room spinning dizziness every time she gets from supine for the last 3 months. However she has been taking mclezine for the last 1 month and noticed decreased symptoms. She has not had any dizziness for the last 2-3 days. On PT examination she reports of having room spinning dizziness which lasts for a few minutes with looking up and supine to sit, presented with intact saccades, intact smooth pursuit, intact visual tracking, negative head thrust, negative VBI, 0 lines with DVA and mildly impaired static and dynamic balance. She was negative for BPPV in [place] and B roll test. She is independent with all ADLS. She would benefit from distribution of HEP for static and dynamic balance with education on how to perform them safely. Frequency and Duration: The patient will be seen Short Term Goals: Water Chemist Goals: Treatment Plan: Modalities to reduce pain, spasms and effusion. Manual therapy to restore motion and function. Therapeutic exercise to improve strength and flexibility. Neuromuscular re-education for posture and balance. Therapeutic activities to return to functional activities of daily living. Electronically signed by: Juliane Lambert PT DPT Please sign and return to therapist. Thank you for your referral.
--- NOTE | 2024-11-26 10:40 | MHC.PT.DC ---
[facility] [place] Office [place] Office [place] Office [address] 140 [facility] [phone] F: [phone] F: [phone] F: [phone] F: [phone] Physical Therapy Discharge Report Diagnosis: Benign paroxysmal vertigo Date of Surgery: NA Date of Evaluation: 10/05/24 Date of Discharge: 11/26/24 Treatments to Date: 1 Cancellations to Date: 0 No Shows to Date: 0 Discharge Status: Discharge Summary: Rody Jacques has had no symptoms of vestibular dysfunction in over a month. She is therefore being d/c from PT. Electronically signed by: Juliane Lambert PT DPT Please sign and return to therapist. Thank you for your referral.
== END 2024-11-26 10:41 | disposition home or self-care (01) ==
LOC: HO.PT 12:59
PROVIDERS: PCP Internal Medicine
DX: H81.10 Benign paroxysmal vertigo, unspecified ear (principal)
CPT/HCPCS: 97112; 97161

== ENCOUNTER 2024-10-16 08:16 | Outpatient (REF) | payer MEDICARE, SELFPAY | END 2024-10-16 08:17 | disposition home or self-care (01) | LOC: HO.SH 08:16 | DX: Z01.118 Encounter for examination of ears and hearing with other abnormal findings (principal); H90.3 Sensorineural hearing loss, bilateral | CPT/HCPCS: 92557; 92567 ==

== ENCOUNTER 2024-11-03 07:17 | Outpatient (REF) | payer MEDICARE, SELFPAY ==
[2024-11-03 07:34] LABS: MANUAL DIFF FLAG NO
[2024-11-03 07:53] LABS: Basophils Absolute Auto 0.1 X10*3/uL (0.0-0.2); Eosinophils Absolute Auto 0.2 X10*3/uL (0.0-0.4); Eosinophils Percent Auto 3.6 % (0-4); Hematocrit 39.5 % (37.0-47.0); Hemoglobin 13.3 g/dl (12.0-16.0); Imm Gran Abs Auto 0.01 X10*3/uL (0.00-0.03); Imm Gran Pct Auto 0.2 % (0.0-0.4); Lymphocytes Absolute Auto 1.6 X10*3/uL (1.2-4.9); Lymphocytes Percent Auto 33.5 % (20-40); Mean Corpuscular HGB Conc 33.7 g/dl (31.0-35.0); Mean Corpuscular Hemoglobin 30.2 pg (27.0-33.0); Mean Corpuscular Volume 89.8 fL (80.0-98.0); Mean Platelet Volume 9.4 fL (9.4-12.3); Monocytes Absolute Auto 0.6 X10*3/uL (0.1-1.2); Monocytes Percent Auto 12.4 % (2-11); Neutrophils Absolute Auto 2.4 x10*3/uL (2.0-8.3); Neutrophils Percent Auto 49.3 % (45-73); Platelet Count 216 X10*3/uL (160-400); Red Cell Distribution Width 12.4 % (11.0-16.0); White Blood Count 4.8 X10*3/uL (4.8-10.8)
[2024-11-03 08:16] LABS: Alanine Aminotransferase 22 U/L (0-31); Alkaline Phosphatase 83 U/L (39-117); Anion Gap 10 (12-20); Aspartate Amino Transferase 27 U/L (5-31); Bilirubin Total 0.6 mg/dL (0.0-1.0); Blood Urea Nitrogen 20 mg/dL (9-16); Calcium 9.2 mg/dL (8.4-10.2); Carbon Dioxide 28 mmol/L (22-29); Chloride 105 mmol/L (96-108); Cholesterol 179 mg/dL (<200); Estimated Glomerular Filt Rate > 60; Glucose Random 138 mg/dL (60-115); HDL Cholesterol 74 mg/dL (>40); LDL Cholesterol Calculated 92 mg/dL (<100); Potassium 4.4 mmol/L (3.3-5.1); Sodium 139 mmol/L (135-145); Triglycerides 65 mg/dL (<150)
[2024-11-03 08:34] LABS: Free T4 (Free Thyroxine) 1.08 ng/dL (0.71-1.85); TSH reflex Free T4 1.53 uIU/mL (0.32-4.0); Vitamin D 25-OH Total 24.6 ng/mL (>30)
[2024-11-03 08:40] LABS: Folate 11.6 ng/mL (> or = 4.0); Vitamin B12 357 pg/mL (200-900)
== END 2024-11-03 07:18 | disposition home or self-care (01) ==
LOC: HO.LAB 07:17
PROVIDERS: PCP Internal Medicine
DX: Z00.00 Encounter for general adult medical examination without abnormal findings (principal); E11.65 Type 2 diabetes mellitus with hyperglycemia; E78.00 Pure hypercholesterolemia, unspecified
CPT/HCPCS: 36415; 80053; 80061; 82306; 82607; 82746; 84439; 84443; 85025

== ENCOUNTER 2024-11-25 09:33 | Outpatient (AMB) | payer MEDICARE, SELFPAY ==
[2024-11-25 09:43] VITALS: BP 128/78; PULSE 71; O2SAT 96; BMI 31.8
--- NOTE | 2024-11-25 09:43 | A.OFFPC_ITS ---
Vital Signs 11/25/24 09:43 Height 5 ft 5 in Weight 191 lb BMI 31.8 BP 128/78 Blood Pressure Location Lt brachial Position Sitting Pulse 71 Pulse Source Pulse Oximeter Pulse Oximetry (%) 96 Oxygen Delivery Method Room Air Intake Visit Reasons: hypothyroid Allergies Sulfa (Sulfonamide Antibiotics) Allergy (Unknown, Verified 11/25/24 09:43) hives simvastatin Adverse Reaction (Intermediate, Verified 11/25/24 09:43) myalgia Medication List - Last Reconciled 11/25/24 by David Luna MD bupropion HCl XL (Wellbutrin XL) 300 mg PO QAM 90 days cholecalciferol (vitamin D3) 50 mcg PO DAILY 90 days cyclobenzaprine 5 mg PO TID PRN 90 days escitalopram oxalate (Lexapro) 5 mg PO DAILY levothyroxine 125 mcg PO QAM metformin 500 mg PO DAILY pravastatin 20 mg PO BEDTIME 90 days Tobacco use date assessed: 09/11/24 Fall risk assessment: No Falls in past year Last assessed Fall Risk: 11/25/24 Dental Screening Dental Screen Date: 09/11/24 HPI hypothyroid HPI0 Details PFT next week also , stress nuclear next week PFSH Medical History Osteopenia Abnormal chest x-ray Fracture of fifth toe, left, closed De Quervain's tenosynovitis Hypercholesterolemia Type 2 diabetes mellitus with hyperglycemia Fatty liver Tubular adenoma of colon Degenerative disc disease, cervical Hypothyroid Vitamin D deficiency Surgical History H/O rectocele repair History of tonsillectomy History of bladder surgery History of tubal ligation History of section Family History Father No problems noted. Mother Lymphoma Maternal Grandmother Lymphoma Maternal Aunt Bone cancer Social History Housing: House Alcohol intake: current Alcohol intake frequency: a few times a week Patient Tobacco Use Status: Former Tobacco user Tobacco use type: Cigarette Years Smoked: quit 18 years old e-Cigarette/Vaping Use: Never Used Second Hand Smoke Exposure: No Current occupational status: retired Cognitive needs: No Hearing needs: No Vision needs: No Questionnaire PHQ-9 Over the last 2 weeks, how often have you been bothered by any of the following problems? 1. Little interest or pleasure in doing things: several days 2. Feeling down, depressed, or hopeless: several days 3. Trouble falling or staying asleep, or sleeping too much: several days 4. Feeling tired or having little energy: several days 5. Poor appetite or overeating: several days 6. Feeling bad about yourself - or that you are a failure or have let yourself or your family down: several days 7. Trouble concentrating on things, such as reading the newspaper or watching television: not at all 8. Moving or speaking so slowly that other people could have noticed. Or the opposite - being so fidgety or restless that you have been moving around a lot more than usual: not at all 9. Thoughts that you would be better off or of hurting yourself in some way: not at all Total score: 6 Depression Screening Interpretation: Positive Depression Screening Follow-up: Existing condition and In treatment Depression Screening Done: Yes 83234 - PHQ-9 Billing: Yes Source: Developed by Drs. Obie Quick, Mir Villatoro and colleagues, with an educational sourav from [employer]. Thrive Questionnaire Date Thrive assessed: 09/11/24 AUDIT C Alcohol Use Questionnaire (AUDIT-C) 1. How often do you have a drink containing alcohol?: 2-3 times a week 2. How many drinks containing alcohol do you have on a typical day when you are drinking?: 1 or 2 3. How often do you have six or more drinks on one occasion?: Never Total Score: 3 PEARL-7 AMB Questionnaire PEARL-7 Date PEARL - 7 assessed: 09/11/24 (in treatment ) Source: Developed by Drs. Obie Quick, Mir Villatoro and colleagues, with an educational sourav from [employer]. Physical exam (Primary Care) Vital Signs: Last Vital Signs Pulse 71 11/25/24 09:43 BP 128/78 11/25/24 09:43 Pulse Ox 96 11/25/24 09:43 Oxygen Delivery Method Room Air 11/25/24 09:43 BMI result Body Mass Index 31.8 Tobacco/Smoking Status: Tobacco use Status Tobacco use date assessed 09/11/24 11/25/24 09:44 Patient Tobacco Use Status Former Tobacco user 11/25/24 09:44 Tobacco use type Cigarette 11/25/24 09:44 e-Cigarette/Vaping Use Never Used 11/25/24 09:44 PHQ-9: PHQ-9 Score PHQ-9: Total score 6 11/25/24 10:16 Depression Screening Interpretation: Positive Depression Screening Follow-up: Existing condition and In treatment Thrive Assessment: Date of Thrive Assessment Date Thrive assessed 09/11/24 11/25/24 09:44 Const General: alert; No acute distress Eyes Conjunctivae: conjunctivae normal Resp Auscultation: clear to auscultation bilaterally Cardio Rate: regular rate Rhythm: regular rhythm GI Inspection: Yes normal to inspection Extrem General: Yes normal to inspection and No edema Results AMB Hemoglobin A1c AMB Hemoglobin A1c 6.3 % Last Edit by Kirsten Bhat CMA on 11/25/24 09 :56 Results Reviewed Results Reviewed: Laboratory Last Values Hgb A1c (Clinic) 6.3 % (4.0-6.0) H 11/25/24 09:45 Coding Level of Care Code Est Pt Level 4 (51124) Complex EM visit Add On G2211 Diagnoses Type 2 diabetes mellitus with hyperglycemia, without long-term current use of insulin E11.65 Diabetes mellitus halfway insulin use: without watermaster use Acquired hypothyroidism E03.9 Hypothyroidism type: acquired Hypercholesterolemia E78.00 Generalized anxiety disorder F41.1 Interstitial lung disease J84.9 Abnormal stress ECG R94.39 Torticollis, acute M43.6 Additional Codes PHQ-9 - 55980 - PHQ-9 Billing: Yes ([id number]) Assessment & Plan Assessment & Plan (1) Type 2 diabetes mellitus with hyperglycemia: Comment: [facility] Code(s): E11.65 - Type 2 diabetes mellitus with hyperglycemia Category: Medical Qualifiers: Diabetes mellitus watermaster insulin use: without halfway use Qualified Code(s): E11.65 - Type 2 diabetes mellitus with hyperglycemia Plan: Decrease the amount of carbohydrate intake, pasta, bread, rice and potatoes are all sugar and that is aside from all the sweet stuff, remember that fruits are good but they are Sweet also. Hemoglobin A1c goal of less than 7.0 on metf ormin 500 mg once a day (2) Hypothyroid: Code(s): E03.9 - Hypothyroidism, unspecified Category: Medical Qualifiers: Hypothyroidism type: acquired Qualified Code(s): E03.9 - Hypothyroidism, unspecified Plan: Continue with present thyroid medication (3) Hypercholesterolemia: Code(s): E78.00 - Pure hypercholesterolemia, unspecified Category: Medical Plan: Avoid fried foods, chicken skin, eggs, butter margarine, pastries and meat. Be it pork or beef they have a lot of cholesterol October 2024 last blood work LDL goal of less than 100 and triglyceride of less than 150 on pravastatin 20 mg at bedtime (4) Generalized anxiety disorder: Comment: Prescriber scheduled and counselling, [facility]. Code(s): F41.1 - Generalized anxiety disorder Category: Medical Plan: Continue with counseling and therapy on Lexapro 5 mg once a day and Wellbutrin (5) Interstitial lung disease: Comment: July 2023 Code(s): J84.9 - Interstitial pulmonary disease, unspecified Category: Medical Plan: Supportive treatment. (6) Abnormal stress ECG: Code(s): R94.39 - Abnormal result of other cardiovascular function study Category: Medical Plan: Patient has a scheduled nuclear stress test (7) Torticollis, acute: Code(s): M43.6 - Torticollis Category: Medical Plan History of Present Illness The patient is a 69-year-old female presenting with dizziness concerns. She notes episodes of dizziness, especially in the morning with no clear resolution throughout the day. Having consulted a physician's dental laboratory assistant, she attended physical therapy for possible vertigo, resulting in an auditory evaluation referral. Hearing tests did not identify asymmetry, alleviating particular ENT referrals. Her broader medical history includes obesity, hypothyroidism, diabetes mellitus, hypercholesterolemia, cervical degenerative disc disease, generalized anxiety disorder, and interstitial lung disease, all managed with ongoing therapies and medications. Cognitive concerns surfaced recently, with short-term memory issues noted, although only recent and minor physical activity could accentuate her neck and subsequent symptoms. Her hearing evaluations showed no significant impediments, yet she experiences ongoing crackling in her ears. Health Maintenance - Bone density tests up-to-date as of December 2023 - Mammogram performed in December 2023 - Due for colon test (last performed in 2018) - LDL cholesterol is 92, maintaining goal of less than 100 on Pravastatin - Vitamin D noted as low Social History - Engages in therapy and counseling for anxiety - Reported physical activity includes light gardening work - Watches TV and spends time outdoors - Manages home environment and participates in regular household activities, assisted occasionally by family members Review of Systems - Neurological: Reports dizziness; short-term memory issues - Musculoskeletal: Reports neck stiffness - Psychiatric: Engages in therapy - Cardiovascular: Denies chest pain or palpitations - ENMT: Reports absence of ear pain but crackling sensation Physical Exam - Neurological- Neck muscle tension noted upon palpation - ENMT- Inspection noted no visible abnormalities in ears; performed standard oral checks Results - Labs: Normal blood count, normal electrolytes, fasting blood sugar 138, Hemoglobin A1c 6.3, liver function tests normal - Tests and diagnostics: Stress test in September 2024 with equivocal results Plan Current management for ongoing conditions includes maintaining Metformin and thyroid medication for diabetes and hypothyroidism respectively, supported by dietary adjustments for obesity. Pravastatin continues addressing hypercholesterolemia, while Lexapro and Wellbutrin continue for anxiety. Nuclear stress test scheduling affirms cardiological surveillance due to prior stress test discrepancies. Musculoskeletal strain from cervical issues directed to physical therapy, leveraging muscle relaxants judiciously for symptomatic relief. Memory concerns carefully monitored. While ENMT shows no acute concerns, advice was given on nighttime medication dosing adjustments potentially counteracting morning dizziness. Patient was informed and verbally consented to the use of an ambient scribe for clinic note documentation during this visit. Discussion Notes After reviewing her complex medical history, we discussed persistent dizziness and short-term memory issues. The probable vestibular or muscular origins of symptoms prompted physical therapy referrals and medication adjustments. I emphasized the scheduled nuclear stress test's importance, enlightening the patient on procedural steps and circulatory insights. As ENT findings currently did not suggest major concerns, I recommended monitoring symptom evolution, ensuring proactive management. Patient education on neck pain management includes safe use of muscle relaxants, regular physical exercises, and potential implications from ongoing anxiety medication. Patient Instructions - Continue current medication regimen; notify if experiencing side effects - Adhere to regular exercise and dietary plans - Attend nuclear stress test as scheduled - Engage in neck exercises prescribed during physical therapy - Adjust anxiety medication to nighttime dosing to observe effectiveness - Monitor for any worsening of dizziness or memory issues, and report promptly - Use muscle relaxants only as needed, be aware of sedative effects - Maintain regular follow-up appointments and health screenings Orders: Orders AMB Hemoglobin A1c Today Z13.9 - Encounter for screening, unspecified PT Evaluation and Treatment Today M43.6 - Torticollis
--- OUTSIDE RECORDS SUMMARY | 2024-11-25 10:26 | XMS_ITS ---
Author Organization [facility] Address [address] [place] [address] Care Team Providers Care Watch Inspector Name Role Phone Po David SPARKS Primary Care Provider Obie Cee [phone] REASON FOR VISIT cancel procedure Encounters Encounter Location Date Provider Diagnosis [facility] [address] [place] [phone] 09/24/2024 Obie Nance Plan Of Treatment No Information Progress Notes * ROSAMADHAVNICOLEDOB:[birth year] (69 yo F)Acc No.[id number]:09/24/2024 Patient:?NICOLE TERESA ANN :1955???Age:69 Y???Sex:Female Address:[address] [place] [address] * true * Date:? Generated for Jose hernández/Suresh/eTransmitting on:?11/25/2024 10:25 AM EDT
--- OUTSIDE RECORDS SUMMARY | 2024-11-25 10:26 | XMS_ITS | Patient Health Record ---
Author Organization [facility] Address [address] [place] [address] Care Team Providers Care Senior Front End Web Developer Name Role Phone Po David SPARKS Primary Care Provider Obie Cee [phone] Allergies No Known Allergies Reason For Referral [...] Problem Status W/U Status Risk Notes Problem [id number] Encounter for screening for malignant neoplasm of colon (Z12.11) Active confirmed Problem 899460796 Hx of adenomatous colonic polyps (Z86.010) Active confirmed Problem [id number] Pre-procedural examination (Z01.818) Active confirmed Vital Signs Temperature 97.5 degrees Fahrenheit 09/09/2024 Blood pressure diastolic 01 mm Hg 09/09/2024 Height 65.50 in 09/09/2024 Blood pressure systolic 001 mm Hg 09/09/2024 Weight 194.2 lbs 09/09/2024 BMI 31.82 kg/m2 09/09/2024 Encounters Encounter Location Date Provider Diagnosis [facility] [address] [place] [address] 09/09/2024 Obie Nance Hx of adenomatous colonic polyps Z86.010 ; Encounter for screening for malignant neoplasm of colon Z12.11 and Pre-procedural examination Z01.818 [facility] [address] [place] [address] 09/24/2024 Obie Nance [facility] [address] [place] [address] 10/12/2024 Obie Nance Assessments Encounter Date Diagnosis (ICD Code) Assessment Notes Treatment Notes Treatment Clinical Notes Section Notes 09/09/2024 Encounter for screening for malignant neoplasm [...] keep you advised of her progress. 09/09/2024 Hx of adenomatous colonic polyps (ICD-10 [...] Date MEDICARE OF [place] [address] [facility] [place] [phone] [id number] VENTULET T, NICOLE MCCARTHY Self - patient is the insured [employer] ATT[employer] CLAIMS [address] [place] [address] [id number] VENTULET T, NICOLE MCCARTHY Self - patient is the insured Medical (General) History Medical History History ICD Code Colonoscopy 02/24/2007-with removal of a single tubular adenoma; neg. colonoscopy in 09/2012 Depression Hypothyroidism Denies [place],DM,CVA,Lung disease,renal dise ase Neg. ETT approx. 5 years ago Negative screening colonoscopy in 2018 Surgical History Surgery Date(Month/Year) Trigger finger release Rectocele surgery Bladder suspension Hemorrhoid surgery
--- OUTSIDE RECORDS SUMMARY | 2024-11-25 10:26 | XMS_ITS ---
Author Organization [facility] Address [address] [place] [address] Care Team Providers Care Gifted Program Teacher Name Role Phone David Luna MD Primary Care Provider Obie Cee [phone] REASON FOR VISIT screening,hx polyps Encounters Encounter Location Date Provider Diagnosis [facility] Outpatient [address] [place] [phone] 09/28/2024 Obie Nance Plan Of Treatment No Information Progress Notes * NICOLE TERESA FABIODOB:[birth year] (69 yo F)Acc No.[id number]:09/28/2024 COLON WITH MAC Patient:NICOLE PRECIADO Provider:?Obie Nance MD :1955???Age:69 Y???Sex:Female D ate:09/28/2024 Address:[address] [place], [place] [id number] Pcp:David Luna MD Subjective: * Chief Complaints: [...] MD Date:? 025 Generated for Jose hernández/Suresh/eTransmitting on:?11/25/2024 10:25 AM EDT
--- OUTSIDE RECORDS SUMMARY | 2024-11-25 10:26 | XMS_ITS ---
Author Organization [facility] Address [address] [place] [address] Care Team Providers Care Music Engraver Name Role Phone David Luna MD Primary Care Provider Obie Cee [phone] Encounters Encounter Location Date Provider Diagnosis [facility] [address] [place] [phone] 10/12/2024 Obie Nance Plan Of Treatment No Information Progress Notes * ROSAMADHAVNICOLEDOB:[birth year] (69 yo F)Acc No.[id number]:10/12/2024 Patient:?NICOLE TERESA ANN :1955???Age:69 Y???Sex:Female Address:[address] [place] [address] * true * Date:? Generated for Jose hernández/Suresh/eTransmitting on:?11/25/2024 10:25 AM EDT
== END 2024-11-25 10:42 | disposition home or self-care (01) ==
LOC: HO.HMCH 09:34
PROVIDERS: PCP Internal Medicine; Visit Provider Internal Medicine
DX: E11.65 Type 2 diabetes mellitus with hyperglycemia (principal); J84.9 Interstitial pulmonary disease, unspecified; E03.9 Hypothyroidism, unspecified; E78.00 Pure hypercholesterolemia, unspecified; F41.1 Generalized anxiety disorder; R94.39 Abnormal result of other cardiovascular function study; M43.6 Torticollis

== ENCOUNTER → 2024-11-25 09:33 | Outpatient (BNVA) | payer MEDICARE, SELFPAY | PROVIDERS: PCP Internal Medicine; Visit Provider Internal Medicine | DX: E11.65 Type 2 diabetes mellitus with hyperglycemia (principal); E03.9 Hypothyroidism, unspecified; E78.00 Pure hypercholesterolemia, unspecified; F41.1 Generalized anxiety disorder; J84.9 Interstitial pulmonary disease, unspecified; R94.39 Abnormal result of other cardiovascular function study; M43.6 Torticollis | CPT/HCPCS: 83036; 96127; 99212 ==

== ENCOUNTER → 2024-12-01 08:14 | Outpatient (REF) | payer MEDICARE, SELFPAY ==
--- NOTE | ~2024-12-01 | NM_ITS ---
Lexiscan Myocardial perfusion study Indication: Abnormal stress test evaluated for myocardial ischemia Technique: The patient was brought in for a Lexiscan perfusion study on December 01, 2024 and was injected 0.4 mg of Lexiscan intravenously. Within a minute of this injection 30 mCi of sestamibi was given intravenously. Images were obtained using the SPECT gamma camera interlaced with the gating device. Images were obtained in supine position. Resting perfusion study was performed on December 02, 2024. Patient was administered 30 mCi of sestamibi intravenously at rest. Images were then obtained in supine position. Images obtained with and without CT attenuation. Total DLP 89 mGy-cm. Images were processed with the software and compared side to side in short axis, horizontal long axis and vertical long axis views. Findings: The stress perfusion study showed nonattenuated images show overall normal uptake of radiotracer in all segments of the LV myocardium. Attenuated corrected images show mildly reduced uptake in the apex of the LV myocardium. The gated study shows normal LV systolic function with calculated LVEF of 74%. LV cavity is normal in size. The gated study shows normal systolic wall thickening and contraction of segments. Resting study shows nonattenuated images show some thinning of the distal lateral wall of the LV myocardium. Attenuated corrected images show mildly reduced uptake in the apex of the LV myocardium. Gating at rest reveals normal systolic wall motion with ejection fraction at greater than 70%. The findings are consistent with normal myocardial perfusion. NM/NM cardiolite stress test Impression: 1. Myocardial perfusion imaging study shows normal myocardial perfusion 2. Gated LVEF is 74% 3. Transient ischemic dilatation not present Nondiagnostic changes on EKG. Electronically signed by: Zuhair Allen MD 12/02/2024 05:27 PM EDT
--- NOTE | 2024-12-01 08:18 | CA_ITS ---
Acquisition Time: 2024-12-01 08:21:42 Total Exercise Time: 00:02:00 Test Indications: Dyspnea LIGHTHEADEDNESS Medications: LEVOTHYROXINE BUPROPION CYCLOBENZAPRINE Protocol: LEXISCAN Max HR: 123 BPM 82% of Pred: 149 BPM Max BP: 138/60 mmHG Max Work Load: 1.6 METS Pharmacological stress test with Lexiscan while pt walked on the treadmill at 1mph, with reports of SOB and palpitations, without any arrythmias, with normotensive response to exercise. Nondiagnostic EKG for ischemia. In recovery, breathing returned to baseline. Pt feeling back to baseline. Nuclear images pending. Test reviewed with Dr. Allen. Referred By: Heather Byrne Electronically Signed By: Francisco J Rossi
--- OUTSIDE RECORDS SUMMARY | 2024-12-01 08:23 | XMS_ITS | Patient Health Record ---
Author Organization [facility] Address [address] [place] [address] Care Team Providers Care Mailmaster Name Role Phone Po David SPARKS Primary Care Provider Obie Cee [phone] Allergies No Known Allergies Reason For Referral [...] Problem Status W/U Status Risk Notes Problem [id number] Encounter for screening for malignant neoplasm of colon (Z12.11) Active confirmed Problem 363840379 Hx of adenomatous colonic polyps (Z86.010) Active confirmed Problem [id number] Pre-procedural examination (Z01.818) Active confirmed Vital Signs Temperature 97.5 degrees Fahrenheit 09/09/2024 Blood pressure diastolic 01 mm Hg 09/09/2024 Height 65.50 in 09/09/2024 Blood pressure systolic 001 mm Hg 09/09/2024 Weight 194.2 lbs 09/09/2024 BMI 31.82 kg/m2 09/09/2024 Encounters Encounter Location Date Provider Diagnosis [facility] [address] [place] [address] 09/09/2024 Obie Nance Hx of adenomatous colonic polyps Z86.010 ; Encounter for screening for malignant neoplasm of colon Z12.11 and Pre-procedural examination Z01.818 [facility] [address] [place] [address] 09/24/2024 Obie Nance [facility] [address] [place] [address] 10/12/2024 Obie Nance Assessments Encounter Date Diagnosis [...] Date MEDICARE OF [place] [address] [place] [phone] [id number] VENTULET T, NICOLE MCCARTHY Self - patient is the insured [employer] ATTN CLAIMS [address] [place] [address] [phone] [id number] VENTULET T, NICOLE MCCARTHY Self - patient is the insured Medical (General) History Medical History History ICD Code Colonoscopy 02/24/2007-with removal of a single tubular adenoma; neg. colonoscopy in 09/2012 Depression Hypothyroidism Denies [place],DM,CVA,Lung disease,renal dise ase Neg. ETT approx. 5 years ago Negative screening colonoscopy in 2018 Surgical History Surgery Date(Month/Year) Trigger finger release Rectocele surgery Bladder suspension Hemorrhoid surgery
--- OUTSIDE RECORDS SUMMARY | 2024-12-01 08:24 | XMS_ITS ---
Author Organization [facility] Address [address] [place] [address] Care Team Providers Care Cabin Man Name Role Phone David Luna MD Primary Care Provider Obie Cee [phone] Encounters Encounter Location Date Provider Diagnosis [facility] [address] [place] [address] 10/12/2024 Obie Nance Plan Of Treatment No Information Progress Notes * ROSAMADHAVNICOLEDOB:[birth year] (69 yo F)Acc No.[id number]:10/12/2024 Patient:?NICOLE TERESA ANN :1955???Age:69 Y???Sex:Female Address:[address] [place] [address] * true * Date:? Generated for Jose hernández/Suresh/eTransmitting on:?12/01/2024 08:23 AM EDT
--- OUTSIDE RECORDS SUMMARY | 2024-12-01 08:24 | XMS_ITS ---
Author Organization [facility] Address [address] [place] [address] Care Team Providers Care Manpower Development Specialist Name Role Phone David Luna MD Primary Care Provider Obie Cee [phone] REASON FOR VISIT screening,hx polyps Encounters Encounter Location Date Provider Diagnosis [facility] Outpatient [address] [place] [phone] 09/28/2024 Obie Nance Plan Of Treatment No Information Progress Notes * NICOLE TERESA FABIODOB:[birth year] (69 yo F)Acc No.[id number]:09/28/2024 COLON WITH MAC Patient:NICOLE PRECIADO Provider:?Obie Nance MD :1955???Age:69 Y???Sex:Female D ate:09/28/2024 Address:[address] [place], [place] [address] Pcp:David Luna MD Subjective: * Chief Complaints: [...] MD Date:? 025 Generated for Jose hernández/Suresh/eTransmitting on:?12/01/2024 08:24 AM EDT
--- OUTSIDE RECORDS SUMMARY | 2024-12-01 08:24 | XMS_ITS ---
Author Organization [facility] Address [address] [place] [address] Care Team Providers Care Pharmacy Technician Infusion Name Role Phone Po David SPARKS Primary Care Provider Obie Cee [phone] REASON FOR VISIT cancel procedure Encounters Encounter Location Date Provider Diagnosis [facility] [address] [place] [address] 09/24/2024 Obie Nance Plan Of Treatment No Information Progress Notes * ROSAMADHAVNICOLEDOB:[birth year] (69 yo F)Acc No.[id number]:09/24/2024 Patient:?NICOLE TERESA ANN :1955???Age:69 Y???Sex:Female Address:[address] [place] [address] * true * Date:? Generated for Jose hernández/Suresh/eTransmitting on:?12/01/2024 08:24 AM EDT
== END ==
LOC: HO.CARD 08:14
PROVIDERS: PCP Internal Medicine
DX: R94.39 Abnormal result of other cardiovascular function study (principal)
CPT/HCPCS: 78452; 93017; A9500; J0280; J2785

== ENCOUNTER → 2024-12-01 08:18 | Outpatient (BNV) | payer MEDICARE, SELFPAY | PROVIDERS: PCP Internal Medicine | DX: R06.02 Shortness of breath (principal); R00.2 Palpitations | CPT/HCPCS: 78452; 93016; 93018 ==

== ENCOUNTER 2025-02-12 13:06 | Outpatient (AMB) | payer MEDICARE, SELFPAY ==
--- OUTSIDE RECORDS SUMMARY | 2025-02-12 13:09 | XMS_ITS | Patient Health Record ---
Author Organization [facility] Address [address] [place] [id number] Care Team Providers Care Early Head Start Director Name Role Phone Po David SPARKS Primary Care Provider Obie Cee [phone] Allergies No Known Allergies Reason For Referral [...] Problem Status W/U Status Risk Notes Problem [id number] Encounter for screening for malignant neoplasm of colon (Z12.11) Active confirmed Problem [id number] Hx of adenomatous colonic polyps (Z86.010) Active confirmed Problem [id number] Pre-procedural examination (Z01.818) Active confirmed Vital Signs Temperature 97.5 degrees Fahrenheit 09/09/2024 Blood pressure diastolic 01 mm Hg 09/09/2024 Height 65.50 in 09/09/2024 Blood pressure systolic 001 mm Hg 09/09/2024 Weight 194.2 lbs 09/09/2024 BMI 31.82 kg/m2 09/09/2024 Encounters Encounter Location Date Provider Diagnosis [facility] [address] [place] [address] 09/09/2024 Obie Nance Hx of adenomatous colonic polyps Z86.010 ; Encounter for screening for malignant neoplasm of colon Z12.11 and Pre-procedural examination Z01.818 [facility] [address] [place] [address] 09/24/2024 Obie Nance [facility] [address] [place] [address] 10/12/2024 Obie Nance Assessments Encounter Date Diagnosis [...] [place] [address] [facility] [place] [address] [phone] [id number] VENTULET T, NICOLE MCCARTHY Self - patient is the insured [employer] CLAIM[employer] [address] [place] [address] [id number] VENTULET T, NICOLE MCCARTHY Self - patient is the insured Medical (General) History Medical History History ICD Code Colonoscopy 02/24/2007-with removal of a single tubular adenoma; neg. colonoscopy in 09/2012 Depression Hypothyroidism Denies OR,DM,CVA,Lung disease,renal dise ase Neg. ETT approx. 5 years ago Negative screening colonoscopy in 2018 Surgical History Surgery Date(Month/Year) Trigger finger release Rectocele surgery Bladder suspension Hemorrhoid surgery
[2025-02-12 13:16] VITALS: BP 124/62; PULSE 72; O2SAT 96; BMI 31.1
--- NOTE | 2025-02-12 13:16 | A.OFFVIS_ITS ---
Vital Signs 02/12/25 13:16 Height 5 ft 5 in Weight 187 lb BMI 31.1 BP 124/62 Blood Pressure Location Rt brachial Position Sitting Pulse 72 Pulse Source Pulse Oximeter Pulse Oximetry (%) 96 Oxygen Delivery Method Room Air Intake Visit Reasons: ILD Allergies Sulfa (Sulfonamide Antibiotics) Allergy (Unknown, Verified 02/12/25 13:21) hives simvastatin Adverse Reaction (Intermediate, Verified 02/12/25 13:21) myalgia HPI HPI ILD: Details: 70-year-old lady, minimal smoker during her teen years,? followed for underlying moderate UIP. She denies recent exacerbations. She was not able to complete her follow-up PFT. [facility] Medical History Osteopenia Abnormal chest x-ray Fracture of fifth toe, left, closed De Quervain's tenosynovitis Hypercholesterolemia Type 2 diabetes mellitus with hyperglycemia Fatty liver Tubular adenoma of colon Degenerative disc disease, cervical Hypothyroid Vitamin D deficiency Surgical History H/O rectocele repair History of tonsillectomy History of bladder surgery History of tubal ligation History of section Family History Father No problems noted. Mother Lymphoma Maternal Grandmother Lymphoma Maternal Aunt Bone cancer Social History Housing: House Alcohol intake: current Alcohol intake frequency: a few times a week Patient Tobacco Use Status: Former Tobacco user Tobacco use type: Cigarette Years Smoked: quit 18 years old e-Cigarette/Vaping Use: Never Used Second Hand Smoke Exposure: No Current occupational status: retired Cognitive needs: No Hearing needs: No Vision needs: No Review of Systems Const Denies daytime sleepiness, Denies excessive sweating, Denies fatigue, Denies fever(s), Denies lethargy, Denies malaise, Denies night sweats, Denies snoring and Denies weight loss Eyes Denies blurry vision and Denies itchy eyes ENT Denies nasal congestion, Denies post nasal drip, Denies sinus pain, Denies sinus pressure and Denies other ( Thrush) Card Denies chest pain, Denies pedal edema, Denies dyspnea, Denies orthopnea and Denies paroxysmal nocturnal dyspnea Resp Denies cough, Denies hemoptysis, Denies excessive phlegm production, Denies dyspnea, Denies snoring and Denies wheezing GI Denies abdominal pain and Denies heartburn Musc Denies myalgias, Denies arthralgias and Denies joint swelling Skin/Breast Denies rash Neuro Denies memory loss and Denies seizure-like activity Psych Denies abnormal sleep pattern, Denies anxiety and Denies memory loss Endo Denies excessive sweating, Denies fatigue and Denies heat intolerance Jason/Lymph Denies easy bruising Aller/Immun Denies itchy eyes, Denies seasonal rhinorrhea and Denies wheezing Physical Exam Vital Signs: Last Vital Signs Pulse 72 02/12/25 13:16 BP 124/62 02/12/25 13:16 Pulse Ox 96 02/12/25 13:16 Oxygen Delivery Method Room Air 02/12/25 13:16 BMI result Body Mass Index 31.1 Const General: no acute distress and alert Nutritional Appearance: not obese Orientation/consciousness: Other orientation findings ( oriented) HEENT Head: Yes atraumatic Eyes General: appearance normal, both eyes and all related structures Sclerae: sclerae normal EOM: EOMs intact bilaterally Neck Neck: Yes supple Lymphatic: no lymphadenopathy noted Resp Effort & Inspection: normal respiratory effort and no use of accessory muscles Auscultation: crackles (Mild bilateral inspiratory) Cardio Rate: regular rate Rhythm: regular rhythm Heart sounds: no gallops, no murmurs and no rubs Skin General skin exam: other ( warm) Extrem General: No clubbing, No cyanosis and No edema Assessment & Plan Assessment & Plan (1) Interstitial lung disease: Comment: July 2023 Code(s): J84.9 - Interstitial pulmonary disease, unspecified Category: Medical Plan: Overall clinically silent. Will repeat full PFT. Orders: Orders PFT pulmonary function test Today J84.9 - Interstitial pulmonary disease, unspecified Coding Level of Care Code Est Pt Level 3 (40687) Diagnoses Interstitial lung disease J84.9
== END 2025-02-12 13:31 | disposition home or self-care (01) ==
LOC: HO.HPS 13:07
PROVIDERS: PCP Internal Medicine; Visit Provider Internal Medicine Pulmonary Disease
DX: J84.9 Interstitial pulmonary disease, unspecified (principal)
CPT/HCPCS: 99213

== ENCOUNTER → 2025-02-12 13:06 | Outpatient (BNVA) | payer MEDICARE, SELFPAY | PROVIDERS: PCP Internal Medicine; Visit Provider Internal Medicine Pulmonary Disease | DX: J84.9 Interstitial pulmonary disease, unspecified (principal); Z87.891 Personal history of nicotine dependence | CPT/HCPCS: 99212 ==

== ENCOUNTER 2025-05-31 09:58 | Outpatient (AMB) | payer MEDICARE, SELFPAY ==
--- NOTE | 2025-05-31 10:10 | MHC.PC.OV ---
Intake Visit Reasons: V [id number] Allergies Sulfa (Sulfonamide Antibiotics) Allergy (Unknown, Verified 02/12/25 13:21) hives simvastatin Adverse Reaction (Intermediate, Verified 02/12/25 13:21) myalgia Tobacco use date assessed: 09/11/24 Dental Screening Dental Screen Date: 09/11/24 [facility] Medical History (Updated 05/31/25 @ 10:13 by David Luna MD) Dyspnea on exertion Abnormal stress ECG Osteopenia Abnormal chest x-ray Fracture of fifth toe, left, closed De Quervain's tenosynovitis Hypercholesterolemia Type 2 diabetes mellitus with hyperglycemia Fatty liver Tubular adenoma of colon Degenerative disc disease, cervical Hypothyroid Vitamin D deficiency Surgical History H/O rectocele repair History of tonsillectomy History of bladder surgery History of tubal ligation History of section Family History Father No problems noted. Mother Lymphoma Maternal Grandmother Lymphoma Maternal Aunt Bone cancer Social History Housing: House Alcohol intake: current Alcohol intake frequency: a few times a week Patient Tobacco Use Status: Former Tobacco user Tobacco use type: Cigarette Years Smoked: quit 18 years old e-Cigarette/Vaping Use: Never Used Second Hand Smoke Exposure: No Current occupational status: retired Cognitive needs: No Hearing needs: No Vision needs: No Questionnaire Thrive Questionnaire Date Thrive assessed: 09/11/24 PEARL-7 AMB Questionnaire PEARL-7 Date PEARL - 7 assessed: 09/11/24 (in treatment ) Source: Developed by Drs. Obie Quick, Pepper Kruger, Mir Reddy and colleagues, with an educational sourav from [employer]. Physical exam (Primary Care) Tobacco/Smoking Status: Tobacco use Status Tobacco use date assessed 09/11/24 05/31/25 10:11 Patient Tobacco Use Status Former Tobacco user 05/31/25 10:11 Tobacco use type Cigarette 05/31/25 10:11 e-Cigarette/Vaping Use Never Used 05/31/25 10:11 Thrive Assessment: Date of Thrive Assessment Date Thrive assessed 09/11/24 05/31/25 10:11 Const General: alert; No acute distress Eyes Conjunctivae: conjunctivae normal Resp Auscultation: clear to auscultation bilaterally Cardio Rate: regular rate Rhythm: regular rhythm GI Inspection: Yes normal to inspection Extrem General: Yes normal to inspection and No edema Coding Level of Care Code Est Pt Prev Care >65y(48224) Diagnoses Type 2 diabetes mellitus with hyperglycemia, without long-term current use of insulin E11.65 Diabetes mellitus long filler cigar roller machine insulin use: without long filler cigar roller machine use Hypercholesterolemia E78.00 Age-related osteoporosis without current pathological fracture M81.0 Medicare annual wellness visit, subsequent Z00.00 Interstitial lung disease J84.9 Colon cancer screening Z12.11 Breast cancer screening by mammogram Z12.31 Generalized anxiety disorder F41.1 Assessment & Plan Assessment & Plan (1) Type 2 diabetes mellitus with hyperglycemia: Comment: [facility] Code(s): E11.65 - Type 2 diabetes mellitus with hyperglycemia Category: Medical Qualifiers: Diabetes mellitus long filler cigar roller machine insulin use: without fdc use Qualified Code(s): E11.65 - Type 2 diabetes mellitus with hyperglycemia Plan: Decrease the amount of carbohydrate intake, pasta, bread, rice and potatoes are all sugar and that is aside from all the sweet stuff, remember that fruits are good but they are Sweet also. Hemoglobin A1c goal of less than 7.0. Patient on metformin 500 mg once a day only reminded about Ophthalmology and will send out for request for urine test (2) Hypercholesterolemia: Code(s): E78.00 - Pure hypercholesterolemia, unspecified Category: Medical Plan: Avoid fried foods, chicken skin, eggs, butter margarine, pastries and meat. Be it pork or beef they have a lot of cholesterol LDL goal of less than 100 and triglyceride of less than 150 on pravastatin 20 mg once a day (3) Age-related osteoporosis without current pathological fracture: Comment: December 2023 Code(s): M81.0 - Age-related osteoporosis without current pathological fracture Category: Medical Plan: Bone density is up-to-date. Discussed about calcium and vitamin-D and activity (4) Medicare annual wellness visit, subsequent: Code(s): Z00.00 - Encounter for general adult medical examination without abnormal findings Category: Medical Plan: Patient is advised to eat healthy, keep well hydrated, keep active and have adequate sleep. (5) Interstitial lung disease: Comment: July 2023 Code(s): J84.9 - Interstitial pulmonary disease, unspecified Category: Medical Plan: Silent interstitial lung disease patient is being followed up by Pulmonary. PFT pending (6) Colon cancer screening: Code(s): Z12.11 - Encounter for screening for malignant neoplasm of colon Category: Medical Plan: Patient is reminded about colon cancer screening (7) Breast cancer screening by mammogram: Code(s): Z12.31 - Encounter for screening mammogram for malignant neoplasm of breast Category: Medical Plan: Patient is reminded about mammogram (8) Generalized anxiety disorder: Comment: Prescriber scheduled and counselling, [facility]. Code(s): F41.1 - Generalized anxiety disorder Category: Medical Plan: Continue with counseling and therapy on Wellbutrin and Lexapro
[2025-05-31 10:13] VITALS: BP 118/60; PULSE 73; TEMP 36.1; O2SAT 96; BMI 31.3
--- NOTE | 2025-05-31 10:15 | A.OFFVIS_ITS ---
Intake Vital Signs 05/31/25 10:13 05/31/25 10:17 Height 5 ft 5 in Weight 188 lb BMI 31.3 31.3 BP 118/60 Blood Pressure Location Lt brachial Position Sitting Pulse 73 Pulse Source Pulse Oximeter Temp 97.0 F Temp Source Temporal Artery Scan Pulse Oximetry (%) 96 Oxygen Delivery Method Room Air Intake Visit Reasons: SWV [id number] Allergies Sulfa (Sulfonamide Antibiotics) Allergy (Unknown, Verified 05/31/25 10:16) hives simvastatin Adverse Reaction (Intermediate, Verified 05/31/25 10:16) myalgia Medication List - Last Reconciled 05/31/25 by David Luna MD bupropion HCl XL (Wellbutrin XL) 300 mg PO QAM 90 days cholecalciferol (vitamin D3) 50 mcg PO DAILY 90 days cyclobenzaprine 5 mg PO TID PRN 90 days escitalopram oxalate (Lexapro) 5 mg PO DAILY levothyroxine 125 mcg PO QAM metformin 500 mg PO DAILY pravastatin 20 mg PO BEDTIME 90 days HPI SWV G0439 HPI Details heartburn, PFSH Medical History Dyspnea on exertion Abnormal stress ECG Osteopenia Abnormal chest x-ray Fracture of fifth toe, left, closed De Quervain's tenosynovitis Hypercholesterolemia Type 2 diabetes mellitus with hyperglycemia Fatty liver Tubular adenoma of colon Degenerative disc disease, cervical Hypothyroid Vitamin D deficiency Surgical History H/O rectocele repair History of tonsillectomy History of bladder surgery History of tubal ligation History of section Family History Father No problems noted. Mother Lymphoma Maternal Grandmother Lymphoma Maternal Aunt Bone cancer Social History (Updated 05/31/25 @ 10:24 by David Luna MD) Housing: House Alcohol intake: current Alcohol intake frequency: a few times a week Comment: once a week 1 glass Patient Tobacco Use Status: Former Tobacco user Tobacco use type: Cigarette Years Smoked: quit 18 years old e-Cigarette/Vaping Use: Never Used Second Hand Smoke Exposure: No Current occupational status: retired Cognitive needs: No Hearing needs: No Vision needs: No Questionnaire Medicare Wellness Checkup [age] What gender do you identify with?: female During the past 4 weeks, how much have you been bothered by emotional problems such as feeling anxious, depressed, irritable, sad or downhearted, and blue?: slightly During the past 4 weeks, has your physical & emotional health limited your social activities with family, friends, neighbors, or groups?: slightly During the past 4 weeks, how much bodily pain have you generally had?: very mild pain During the past 4 weeks, was someone available to help you if you needed & wanted help?: yes, as much as I wanted During the past 4 weeks, what was the hardest physical activity you could do for at least 2 minutes?: moderate Can you get to places out of walking distance without help? (For eg., can you travel alone on buses, taxis or drive your car?): Yes Can you go shopping for groceries or clothes without someone's help?: Yes Can you prepare your own meals?: Yes Can you do your housework without help?: Yes Because of any health problems, do you need the help of another person with your personal care needs such as eating, bathing, dressing or getting around the house?: No Can you handle your own money without help?: Yes During the past 4 weeks, how would you rate your health in general?: very good During the past 4 weeks how have things been going for you?: pretty well Are you having difficulties driving your car?: sometimes Do you always fasten your seat belt when you are in a car?: yes, usually During past 4 weeks, have you been bothered by the following: never: Falling or dizzy when standing up, Sexual problems?, Trouble eating well?, Teeth or denture problems? and Problems using the telephone? and sometimes: Tiredness or fatigue? Have you fallen 2 or more times in the past year?: No Are you afraid of falling?: No Are you a smoker?: no During the past 4 weeks, how many drinks of wine, beer, or other alcoholic beverages did you have?: 1 drink or less per week Do you exercise for about 20 minutes 3 or more times a week?: yes, some of the time Have you been given information to help with the following?: no: Hazards in your house that might hurt you? and no: Keeping track of your medications? How often do you have trouble taking medicines the way you have been told to take them?: I always take medicine as prescribed How confident are you that you can control & manage most of your health problems?: very confident What is your race?: White PHQ-9 Over the last 2 weeks, how often have you been bothered by any of the following problems? 1. Little interest or pleasure in doing things: several days 2. Feeling down, depressed, or hopeless: several days 3. Trouble falling or staying asleep, or sleeping too much: several days 4. Feeling tired or having little energy: several days 5. Poor appetite or overeating: not at all 6. Feeling bad about yourself - or that you are a failure or have let yourself or your family down: several days 7. Trouble concentrating on things, such as reading the newspaper or watching television: not at all 8. Moving or speaking so slowly that other people could have noticed. Or the opposite - being so fidgety or restless that you have been moving around a lot more than usual: not at all 9. Thoughts that you would be better off or of hurting yourself in some way: not at all Total score: 5 Depression Screening Interpretation: Positive Depression Screening Done: Yes 43062 - PHQ-9 Billing: Yes Source: Developed by Drs. Obie Quick, Pepper Kruger, Mir Reddy and colleagues, with an educational sourav from [employer]. Review of Systems Const Denies poor appetite and Denies weakness Eyes Denies no additional complaints ENT Reports Normal hearing present, Denies dizziness, Denies nasal congestion, Denies tinnitus and Denies sore throat Card Denies chest pain, Denies syncope, Denies rapid heart rate and Denies dyspnea Resp Denies cough and Denies dyspnea GI Denies change in stool character, Reports constipation, Denies diarrhea, Denies nausea and Denies vomiting Denies urinary frequency, Denies difficulty voiding and Denies dysuria Neuro Reports Normal hearing present, Denies confusion, Denies dizziness, Denies syncope and Denies weakness Psych Denies confusion Physical Exam Vital Signs: Last Vital Signs Temp 97.0 F 05/31/25 10:13 Pulse 73 05/31/25 10:13 BP 118/60 05/31/25 10:13 Pulse Ox 96 05/31/25 10:13 Oxygen Delivery Method Room Air 05/31/25 10:13 BMI result Body Mass Index 31.3 Const General: No confusion Orientation/consciousness: No confusion HEENT Head: Yes normocephalic Ears: external ears normal and TM's normal bilaterally Face and sinus: Yes normal facial exam Mouth: moist mucous membranes Throat: Yes tonsils normal Eyes Conjunctivae: conjunctivae normal Pupils: Equal, round and reactive pupils present and Pupil accommodation reflex normal Direct Ophthalmoscopy: normal light reflex Neck Neck: No lymphadenopathy Thyroid: Thyroid normal Chest Chest palpation & inspection: normal inspection of the chest Resp Effort & Inspection: normal respiratory effort and no audible wheezes Auscultation: clear to auscultation bilaterally, no crackles, no wheezes and lung sounds not diminished Cardio Rate: regular rate Rhythm: regular rhythm Peripheral pulses: radial pulses present and dorsalis pedis present GI Palpation (GI): no masses Auscultation: normal bowel sounds and normoactive bowel sounds Rectal Exam - Female: deferred Skin General skin exam: no rashes or lesions noted Rashes: no rashes Neuro General: No confusion Cranial nerves: Yes Equal, round and reactive pupils present and Yes Normal hearing present Cognition (Neuro): normal cognition Gait exam (Neuro): Normal gait present Motor exam (neuro): 5/5 motor strength present throughout Deep tendon reflexes (DTR's): Right brachioradialis reflex intensity grade: 2+, Left brachioradialis reflex intensity grade: 2+, Right patellar reflex intensity grade: 2+ and Left patellar reflex intensity grade: 2+ Extrem General: No edema Office Procedures Flu Questionnaire Does the patient have a severe egg allergy?: No Does the patient have severe life threatening allergies?: No Does the patient have a fever or illness today?: No Has the patient ever had Guillain-Sciota Syndrome?: No Has the patient ever had any past reaction to a flu shot?: No Results AMB Hemoglobin A1c AMB Hemoglobin A1c 6.9 % Last Edit by Faviola Morfin CMA on 05/31/25 10:25 Immunizations Fluarix [id number] (PF) 45 mcg (15 mcg x 3)/0.5 mL IM syringe Performing Provider: David Luna MD Per[facility] [place] [facility] Administered by: Faviola Morfin CMA on 05/31/25 10:49 Dose Route Admin Location Dispensed Lot Number Expiration Date NDC [employer] Clerk 0.5 mL IM Left Deltoid 0.5 mL [id number] 01/18/26 13980-684-66 [employer] VIS Given Date VIS Provided VIS Publication Date 05/31/25 Single Vaccine 24 Eligibility Eligibility Date Funding Source Not [facility] Eligible 05/31/25 Private Results Reviewed Results Reviewed: Laboratory Last Values Hgb A1c (Clinic) 6.9 % (4.0-6.0) H 05/31/25 10:25 Assessment & Plan Assessment & Plan (1) Type 2 diabetes mellitus with hyperglycemia: Comment: [facility] Code(s): E11.65 - Type 2 diabetes mellitus with hyperglycemia Qualifiers: Diabetes mellitus oysterman insulin use: without fci use Qualified Code(s): E11.65 - Type 2 diabetes mellitus with hyperglycemia Plan: Decrease the amount of carbohydrate intake, pasta, bread, rice and potatoes are all sugar and that is aside from all the sweet stuff, remember that fruits are good but they are Sweet also. Hemoglobin A1c goal of less than 7.0 patient is only on metformin. Discussed about Ophthalmology exam.. Will request for blood work in 3 months with urine test (2) Hypercholesterolemia: Code(s): E78.00 - Pure hypercholesterolemia, unspecified Plan: Avoid fried foods, chicken skin, eggs, butter margarine, pastries and meat. Be it pork or beef they have a lot of cholesterol LDL goal of less than 100 on pravastatin 20 mg at bedtime (3) Age-related osteoporosis without current pathological fracture: Comment: December 2023 Code(s): M81.0 - Age-related osteoporosis without current pathological fracture Plan: Discussed about calcium and vitamin-D. Patient is up-to-date with bone density test discussed about activity (4) Medicare annual wellness visit, subsequent: Code(s): Z00.00 - Encounter for general adult medical examination without abnormal findings Plan: Patient is advised to eat healthy, keep well hydrated, keep active and have adequate sleep. (5) Interstitial lung disease: Comment: July 2023 Code(s): J84.9 - Interstitial pulmonary disease, unspecified Plan: Patient follows up with Pulmonary and PFT pending. Silent interstitial lung disease. (6) Colon cancer screening: Code(s): Z12.11 - Encounter for screening for malignant neoplasm of colon Plan: Reminded about colonoscopy (7) Generalized anxiety disorder: Comment: Prescriber scheduled and counselling, [facility]. Code(s): F41.1 - Generalized anxiety disorder Plan: Continue with counseling and therapy. Patient on Lexapro and Wellbutrin. (8) GERD (gastroesophageal reflux disease): Code(s): K21.9 - Gastro-esophageal reflux disease without esophagitis Plan: Avoid the foods that causes that usually spicy foods, tomato products, juices, coffee, soda and foods that your sensitive to. After eating do not lie down, allow 3-4 hours before in lie down. And keep the head of bed above 30 degrees to avoid the acid from going up. Plan History of Present Illness The patient is a 70-year-old obese female presenting for an annual wellness visit. She has a past medical history of hypothyroidism, diabetes mellitus, hypercholesterolemia, generalized anxiety disorder, interstitial lung disease, and osteoporosis. The patient was last seen in November 2024. Regarding health maintenance, her mammogram and colonoscopy are due. Her last bone density scan was in December 2023. She was seen by gastroenterology in August 2024 for a recall colonoscopy, but it has not yet been scheduled, having been deferred during her cardiac workup. For her interstitial lung disease, the patient follows up with a squeak rattle and leak repairer and the condition is noted to be silent. A repeat pulmonary function test is pending, as she had to reschedule the appointment. She underwent a stress test in November 2024, which showed normal myocardial perfusion with an ejection fraction of 74%. Her last blood work was in October 2024, revealing a normal blood count, electrolytes, and renal function, as well as a normal thyroid level and an LDL of 92. Her hemoglobin A1c in November was 6.3%. Her last urine test was in May 2024. Psychiatrically, the patient is being treated for what her counselor has identified as PTSD. She reports feeling depressed, having no drive, being tired all the time, and gets melancholy. She is currently taking Wellbutrin 300 mg and Lexapro 5 mg daily and is continuing with counseling and therapy. The patient has been experiencing worsening short-term memory, which is concerning to her. She has also had recent onset of frequent heartburn that occurs with all foods and is managed with Tums. Health Maintenance The patient is due for a mammogram and a colon cancer screening, and she was reminded to schedule these. She will receive her flu shot today, and her other vaccinations are up to date. Social History - Alcohol use: Reports drinking one glass of alcohol about once a week with dinner. - Tobacco use: Denies current use. 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 - Activity level: Reports a lack of activity and not feeling like doing anything. - Mental health: Actively engaged in therapy to manage stress and feelings of depression related to caretaking and past bereavements. Review of Systems - Constitutional: Reports fatigue, feeling depressed, and lack of motivation. - HEENT: Denies problems with vision or hearing. - Cardiovascular: Denies chest pain. - Respiratory: Denies dyspnea at rest, waking up short of breath, and cough. - Gastrointestinal: Reports frequent heartburn and increased thirst with dry mouth. - Genitourinary: Reports nocturia, waking up to two times per night. - Neurological: Reports worsening short-term memory. - Psychiatric: Reports feeling depressed, melancholy, and having no drive. Physical Exam General: Cooperative, healthy appearing, comfortable, no acute distress and well developed Orientation: Patient oriented x3 Limitations: No limitations Head: Normal to inspection Ears: Hearing grossly normal bilaterally Nose: Normal external nose present Face and sinus: Normal facial exam Eyes: Appearance normal, both eyes and all related structures Neck: Normal visual inspection and Yes full ROM Respiratory: Normal respiratory effort and able to speak in complete sentences. Clear to auscultation bilaterally Cardiovascular: Regular rate and rhythm. Normal S1 and S2 GI: Normal to inspection. Soft to palpation and nontender Skin: No rashes or lesions noted Neuro: Patient oriented x3 Extremities: Normal to inspection Results - Stress test (November 2024): Normal myocardial perfusion with an EF of 74%. - Labs (October 2024): Normal blood count, electrolytes, and renal function. - Hemoglobin A1c: Was 6.3% in November, now 6.9%. - LDL: 92. - Thyroid function: Normal. - Urine test: Last performed in May 2024. - Bone density scan: Last performed in December 2023. Plan Patient was informed and verbally consented to the use of an ambient scribe for clinic note documentation during this visit. 1. Type 2 Diabetes Mellitus The patient's hemoglobin A1c has increased from 6.3% to 6.9%, indicating worsening glycemic control. Her symptoms of increased thirst are likely related to hyperglycemia. Metformin will be increased to twice a day. She was encouraged to increase her physical activity. She has been reminded to follow up with ophthalmology and will have repeat blood work, including a urine test, in 3 months. 2. Hypercholesterolemia The patient's LDL goal is less than 100, and her last LDL was 92. She will continue taking pravastatin 20 mg once a day. 3. Osteoporosis The patient's bone density test is up to date as of December 2023. The importance of calcium, vitamin D, and physical activity was discussed. 4. Interstitial Lung Disease Her interstitial lung disease is silent, and she continues to follow up with her squeak rattle and leak repairer. A pulmonary function test is pending. 5. 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 She will continue with counseling and therapy and will continue her current medications, bupropion (Wellbutrin) and escitalopram (Lexapro). 6. Heartburn The patient reports new onset of frequent heartburn. She was advised to discuss this with the environmental lead when she schedules her colonoscopy. Lifestyle modifications were discussed, including avoiding eating for 4 hours before lying down and elevating the head of the bed. She will continue to use TUMS as needed for symptom relief. 7. Memory Impairment The patient reports subjective concerns about worsening short-term memory. A brief cognitive screen was performed, which was not grossly abnormal, though she missed one recall item. She was advised to discuss her symptoms with her therapist and was informed that a more formal neuropsychological exam could be arranged if needed. Discussion Notes I discussed with the patient that her hemoglobin A1c has risen from 6.3% to 6.9%, which indicates her diabetes is less controlled and is the likely cause of her increased thirst and dry mouth. To address this, we will increase her metformin to twice daily. We reviewed the importance of diet and increased physical activity, acknowledging the challenges she faces with motivation and stress. I reviewed her health maintenance needs, reminding her that she is due for both a mammogram and a colonoscopy and that she should call to schedule these. We discussed her new-onset heartburn, and I advised her to mention it to the environmental lead, while also providing lifestyle advice such as avoiding late meals and elevating the head of her bed. Regarding her memory concerns, I acknowledged her worries and noted that while she missed one item on our brief screen, it was not severely abnormal. I recommended she discuss this with her therapist and informed her that more formal testing is an option if needed in the future. We will repeat labs in three months to monitor her diabetes. Patient Instructions - Increase your metformin medication to twice a day as prescribed. - Continue taking your other current medications, including pravastatin for cholesterol and Wellbutrin and Lexapro for mood. - Please schedule your mammogram and colonoscopy, as they are now due. - When you speak with the environmental lead for your colonoscopy, be sure to mention your recent and frequent heartburn. - To help with heartburn, try not to lie down for about four hours after eating, and consider using extra pillows to elevate your head at night. - Continue to follow up with your squeak rattle and leak repairer and complete the pending lung function test. - Please have your blood and urine tests done in three months. - Continue discussions with your therapist about your mood and memory concerns. - You will receive your flu shot today in the office. Orders: Orders Free T4 (Free Thyroxine) 3 Months E03.9 - Hypothyroidism, unspecified Comprehensive Met. Panel 3 Months E03.9 - Hypothyroidism, unspecified Vitamin B12 and Folate 3 Months E03.9 - Hypothyroidism, unspecified Lipid Panel 3 Months E03.9 - Hypothyroidism, unspecified, E78.00 - Pure hypercholesterolemia, unspecified Hemoglobin A1c 3 Months E03.9 - Hypothyroidism, unspecified UA CC w/rflx Micro + Cult 3 Months E03.9 - Hypothyroidism, unspecified, R30.0 - Dysuria Thyroid Stimulating Hormone 3 Months E03.9 - Hypothyroidism, unspecified Creatinine Urine 3 Months E03.9 - Hypothyroidism, unspecified, E11.65 - Type 2 diabetes mellitus with hyperglycemia Microalbumin, Random (w Creat) 3 Months E03.9 - Hypothyroidism, unspecified, E11.65 - Type 2 diabetes mellitus with hyperglycemia Complete Blood Count Auto Diff 3 Months E03.9 - Hypothyroidism, unspecified Vitamin D 25-OH Total 3 Months E03.9 - Hypothyroidism, unspecified AMB Hemoglobin A1c Today Z13.9 - Encounter for screening, unspecified Influenza [id number] Immunization Today Z23 - Encounter for immunization Medications: Changed From metformin 500 mg PO DAILY 90 tabs 0RF E03.9 - Hypothyroidism, unspecified To metformin 500 mg PO BIDWMEAL 90 tabs 3RF E03.9 - Hypothyroidism, unspecified Quality Reporting (2019) Depression/Bipolar (159/160/161/177) PHQ-9: Total score: 5 Coding Level of Care Code Medicare Subsequent (G0439) Diagnoses Type 2 diabetes mellitus with hyperglycemia, without long-term current use of insulin E11.65 Diabetes mellitus oysterman insulin use: without fci use Hypercholesterolemia E78.00 Age-related osteoporosis without current pathological fracture M81.0 Medicare annual wellness visit, subsequent Z00.00 Interstitial lung disease J84.9 Colon cancer screening Z12.11 Generalized anxiety disorder F41.1 GERD (gastroesophageal reflux disease) K21.9 Additional Codes PHQ-9 - 53313 - PHQ-9 Billing: Yes ([id number])
[2025-05-31 10:17] VITALS: BMI 31.3
== END 2025-05-31 10:49 | disposition home or self-care (01) ==
LOC: HO.HMCH 09:59
PROVIDERS: PCP Internal Medicine; Visit Provider Internal Medicine
DX: Z00.00 Encounter for general adult medical examination without abnormal findings (principal); E11.65 Type 2 diabetes mellitus with hyperglycemia; J84.9 Interstitial pulmonary disease, unspecified; E78.00 Pure hypercholesterolemia, unspecified; M81.0 Age-related osteoporosis without current pathological fracture; Z12.11 Encounter for screening for malignant neoplasm of colon; F41.1 Generalized anxiety disorder; K21.9 Gastro-esophageal reflux disease without esophagitis; Z23 Encounter for immunization

== ENCOUNTER → 2025-05-31 09:58 | Outpatient (BNVA) | payer MEDICARE, SELFPAY | PROVIDERS: PCP Internal Medicine; Visit Provider Internal Medicine | DX: Z13.31 Encounter for screening for depression (principal); Z23 Encounter for immunization; Z13.1 Encounter for screening for diabetes mellitus | CPT/HCPCS: 83036; 90471; 90656; 96127 ==

== ENCOUNTER 2025-06-15 09:37 | Outpatient (REF) | payer MEDICARE, SELFPAY ==
--- NOTE | 2025-06-15 09:39 | PFT_ITS ---
Flows: FEV1: 83 % of predicted at 1.84 L FVC: 83 % of predicted at 2.39 L FEV1/FVC: 77 % Bronchodilator response: Present in small to medium airways only Volumes: Total lung capacity: 70 % of predicted at 3.58 L Residual volume: 57 % of predicted at 1.18 L Slow vital capacity: 80 % of predicted at 2.39 L Expiratory reserve volume: 50 % of predicted at 0.37 L Diffusion capacity: Moderately decreased, corrects to normal after adjustment for alveolar ventilation. Impression: Mild restrictive ventilatory defect with bronchodilator response present in small to medium airways only. Decreased expiratory reserve volume suggests extrathoracic restriction likely secondary to abdominal obesity. Combination of restrictive ventilatory defect with decreased diffusion capacity suggests underlying pulmonary parenchymal disease. Clinical correlation is advised. [facility]
[2025-06-15 10:34] VITALS: PULSE 74
== END 2025-06-15 09:38 | disposition home or self-care (01) ==
LOC: HO.RESP 09:37
PROVIDERS: PCP Internal Medicine; Visit Provider Internal Medicine Pulmonary Disease
DX: J84.9 Interstitial pulmonary disease, unspecified (principal)
CPT/HCPCS: 94060; 94640; 94727; 94729

== ENCOUNTER → 2025-06-15 09:39 | Outpatient (BNV) | payer MEDICARE, SELFPAY | PROVIDERS: PCP Internal Medicine; Visit Provider Internal Medicine Pulmonary Disease | DX: J98.4 Other disorders of lung (principal) | CPT/HCPCS: 94060; 94727; 94729 ==